=== PATIENT | female | born 1970 | race Caucasian/White ===

== ENCOUNTER → 2018-03-06 11:34 | Outpatient (CLI) | payer OTHER, SELFPAY ==
[2018-03-06 12:53] LABS: Add Manual Diff / Slide Review NO; Eosinophils Percent Auto 1.8 % (2-4); Hematocrit 38.4 % (36-46); Hemoglobin 13.2 g/dL (12.0-16.0); Lymphocytes Percent Auto 35.9 % (25-40); Mean Corpuscular HGB Conc 34.5 % (30-36); Mean Corpuscular Hemoglobin 31.4 PG (26-34); Mean Corpuscular Volume 90.9 fL (80-100); Monocytes Percent Auto 9.1 % (3-14); Neutrophils Absolute Auto 1700 /uL (3000-5900); Neutrophils Percent Auto 52.2 % (50-75); Platelet Count 156 X10^3/uL (150-400); Red Blood Cell Count 4.22 X10^6/uL (4.0-5.2); Red Cell Distribution Width 13.2 % (11.6-14.8); White Blood Cell Count 3.2 X10^3/uL (4.5-11.0)
[2018-03-06 13:08] LABS: INR 1.1 (0.9-1.3); Prothrombin Time 12.1 SECONDS (10.1-12.7)
[2018-03-06 13:11] LABS: PTT Partial Thromboplastin Tim 31 SECONDS (26.4-36.2)
[2018-03-06 13:15] LABS: Alanine Aminotransferase 24 IU/L (9-52); Albumin 4.3 g/dL (3.5-5.0); Albumin Globulin Ratio 1.4 (1.0-2.8); Alkaline Phosphatase 53 U/L (38-126); Aspartate Aminotransferase 23 IU/L (14-36); BUN Creatinine Ratio 14.4 (6-22); Bilirubin Total 1.3 mg/dL (0.2-1.3); Blood Urea Nitrogen 13 mg/dL (7-17); Calcium 9.6 mg/dL (8.4-10.2); Carbon Dioxide 31 mmol/L (22-32); Chloride 100 mmol/L (98-107); Estimated Glomerular Filt Rate > 60.0 mL/min (>60); Glucose 89 mg/dL (70-100); HEMOLYSIS < 15 (0-50); Potassium 4.3 mmol/L (3.4-5.1); Sodium 140 mmol/L (137-145); Total Protein 7.3 g/dL (6.3-8.2)
== END ==
PROVIDERS: PCP Internal Medicine; Visit Provider Internal Medicine
DX: N93.8 Other specified abnormal uterine and vaginal bleeding (principal)
CPT/HCPCS: 36415; 80053; 83001; 85025; 85610; 85730

== ENCOUNTER → 2019-12-24 08:43 | Outpatient (CLI) | payer OTHER, SELFPAY ==
[2019-12-24 09:50] LABS: Alanine Aminotransferase 15 IU/L (<35); Albumin Globulin Ratio 1.3 (1.0-2.8); Alkaline Phosphatase 51 U/L (38-126); Aspartate Aminotransferase 24 IU/L (14-36); BUN Creatinine Ratio 16.5 (6-22); Bilirubin Total 0.9 mg/dL (0.2-1.3); Blood Urea Nitrogen 15 mg/dL (7-17); Calcium 9.4 mg/dL (8.4-10.2); Carbon Dioxide 29 mmol/L (22-32); Chloride 103 mmol/L (98-107); Cholesterol 183 mg/dL (140-199); Estimated Glomerular Filt Rate > 60.0 mL/min (>60); Globulin 3.2 g/dL (1.7-4.1); Glucose 99 mg/dL (70-100); HDL Cholesterol 77 mg/dL (40-60); HEMOLYSIS < 15 (0-50); LDL Cholesterol Calculated 94 mg/dL (<100); Potassium 3.7 mmol/L (3.4-5.1); Sodium 138 mmol/L (137-145); Total Protein 7.2 g/dL (6.3-8.2); Triglycerides 61 mg/dL (35-150)
[2019-12-24 10:21] LABS: TSH w/ Reflex to FT4 2.04 uIU/mL (0.47-4.68)
== END ==
PROVIDERS: PCP Internal Medicine; Referring Provider Internal Medicine; Visit Provider Internal Medicine
DX: Z13.1 Encounter for screening for diabetes mellitus (principal); Z13.220 Encounter for screening for lipoid disorders; Z13.6 Encounter for screening for cardiovascular disorders
CPT/HCPCS: 36415; 80053; 80061; 84443

== ENCOUNTER → 2020-01-06 14:14 | Outpatient (CLI) | payer OTHER, SELFPAY ==
[2020-01-07 13:36] LABS: Fecal Immunochemical Test Negative (Negative)
== END ==
PROVIDERS: PCP Internal Medicine; Referring Provider Internal Medicine; Visit Provider Internal Medicine
DX: Z12.11 Encounter for screening for malignant neoplasm of colon (principal)
CPT/HCPCS: 82274

== ENCOUNTER → 2020-05-15 08:13 | Outpatient (CLI) | payer OTHER, SELFPAY ==
--- NOTE | 2020-05-15 | DI.MG.S_ITS ---
BILATERAL DIGITAL SCREENING MAMMOGRAM 3D/2D WITH CAD: 05/15/2020 CLINICAL: Baseline exam. Routine screening. No prior exams were available for comparison. The tissue of both breasts is heterogeneously dense. This may lower the sensitivity of mammography. Current study was also evaluated with a Computer Aided Detection (CAD) system. There is a 1.9 cm irregular equal density focal asymmetry in the left breast at 2 o'clock middle depth. There is possible architectural distortion associated with the focal asymmetry. There also is an oval lymph node in the left breast posterior depth superior region seen on the mediolateral oblique view only. This is asymmetrically prominent on the left. No other significant masses, calcifications, or other findings are seen in either breast. IMPRESSION: INCOMPLETE: NEEDS ADDITIONAL IMAGING EVALUATION The 1.9 cm irregular equal density focal asymmetry in the left breast at 2 o'clock middle depth is indeterminate. Additional views with possible ultrasound are recommended. The oval lymph node in the left breast posterior depth superior region seen on the mediolateral oblique view only is indeterminate. Additional views with possible ultrasound are recommended. This exam was interpreted at Station ID: [id number]. NOTE: For mammograms, a report in lay terms will be sent to the patient. Approximately 15% of breast malignancies will not be visualized mammographically. In the management of a palpable breast mass, a negative mammogram must not discourage biopsy of a clinically suspicious lesion. Electronically Signed By: Cornelius Marshall M.D. at/:05/15/2020 10:00:22 letter sent: Additional Imaging Needed ACR BI-RADS Category 0: Incomplete [id number]
== END ==
PROVIDERS: PCP Internal Medicine; Referring Provider Internal Medicine; Visit Provider Internal Medicine
DX: Z12.31 Encounter for screening mammogram for malignant neoplasm of breast (principal)
CPT/HCPCS: 77063; 77067

== ENCOUNTER → 2020-06-06 14:18 | Outpatient (CLI) | payer OTHER, SELFPAY ==
--- NOTE | 2020-06-06 15:01 | DI.US.S_ITS ---
Patient Name: YUKI MONCADA date: 1970 Sex: F Attending Physician: Antoinette Indications: Date: 06/06/2020 15:18 At the request of: NEREYDA POOLE Procedure: US breast LT limited LIMITED ULTRASOUND OF LEFT BREAST AND AXILLA: 06/06/2020 CLINICAL: Additional evaluation requested from prior study and palpable lump. Comparison is made to exams dated: 06/06/2020 mammogram and 05/15/2020 mammogram - [facility]. Ultrasound of the left breast 1-2 o'clock, and axilla regions was performed. There is a 2.9 cm x 3 cm x 1.8 cm irregular mass with a microlobulated and angular margin in the left breast at 1 o'clock anterior depth 3 cm from the nipple. This irregular mass is hypoechoic. This correlates with mammography findings. Color flow imaging demonstrates that there is vascularity present. There also is a left axillary lymph node with eccentric cortical thickening. This left axillary lymph node displays fatty hilum. This correlates with mammography findings. IMPRESSION: SUSPICIOUS OF MALIGNANCY The 2.9 cm x 3 cm x 1.8 cm irregular mass in the left breast at 1 o'clock anterior depth is at a high suspicion for malignancy. An ultrasound guided biopsy is recommended. The findings and recommendations were discussed with the patient in person by Dr. Ralph at the time of the exam. The left axillary lymph node with eccentric cortical thickening is at a low suspicion for malignancy. An ultrasound guided biopsy is recommended. This exam was interpreted at Station ID: [id number]. SUMMARY: Recommend ultrasound-guided biopsy of both the irregular mass in the left breast at 1 o'clock 3 cm from the nipple and the mildly enlarged lymph node in the left axilla. Electronically Signed By: Antony Grover M.D. Continued Report - Page 2 of 2 Patient Name: YUKI MONCADA date: 1970 Sex: F Attending Physician: Antoinette Indications: Date: 06/06/2020 15:18 At the request of: NEREYDA POOLE Procedure: US breast LT limited ar/penrad:06/06/2020 16:44:18 letter sent: Biopsy Required Ultrasound BI-RADS: 4c High suspicion of malignancy
--- NOTE | 2020-06-06 16:34 | DI.MG.S_ITS ---
Patient Name: YUKI MONCADA date: 1970 Sex: F Attending Physician: Antoinette Indications: Date: 06/06/2020 14:27 At the request of: NEREYDA POOLE Procedure: MM special view LT UNILATERAL LEFT DIGITAL DIAGNOSTIC MAMMOGRAM 3D/2D WITH ADDITIONAL VIEWS: 06/06/2020 CLINICAL: Additional evaluation requested from prior study. Comparison is made to exam dated: 05/15/2020 [facility]. The tissue of left breast is heterogeneously dense. This may lower the sensitivity of mammography. There is a 2.5 cm irregular equal density focal asymmetry with a spiculated margin in the left breast at 1 o'clock middle depth. This is seen in additional views. There is architectural distortion associated with the focal asymmetry. There also is an oval lymph node in the left breast posterior depth superior region seen on the mediolateral oblique view only. This is seen in additional views. No other significant masses or calcifications are seen in the breast. IMPRESSION: INCOMPLETE: NEEDS ADDITIONAL IMAGING EVALUATION The 2.5 cm irregular equal density focal asymmetry in the left breast at 1 o'clock middle depth is indeterminate. An ultrasound is recommended. The oval lymph node in the left breast posterior depth superior region seen on the mediolateral oblique view only is indeterminate. An ultrasound is recommended. This exam was interpreted at Station ID: [id number]. NOTE: For mammograms, a report in lay terms will be sent to the patient. Approximately 15% of breast malignancies will not be visualized mammographically. In the management of a palpable breast mass, a negative mammogram must not discourage biopsy of a clinically suspicious lesion. SUMMARY: Continued Report - Page 2 of 2 Patient Name: YUKI MONCADA date: 1970 Sex: F Attending Physician: Antoinette Indications: Date: 06/06/2020 14:27 At the request of: NEREYDA POOLE Procedure: MM special view LT Targeted ultrasound is recommended for further evaluation and will be scheduled immediately following this exam. Electronically Signed By: Antony morel/kathryn:06/06/2020 16:34:39 ACR BI-RADS Category 0: Incomplete [id number]
== END ==
PROVIDERS: PCP Internal Medicine; Referring Provider Internal Medicine; Visit Provider Internal Medicine
DX: R92.8 Other abnormal and inconclusive findings on diagnostic imaging of breast (principal); N63.21 Unspecified lump in the left breast, upper outer quadrant; R59.0 Localized enlarged lymph nodes
CPT/HCPCS: 76642; 77065; G0279

== ENCOUNTER → 2020-06-19 14:14 | Outpatient (CLI) | payer OTHER, SELFPAY ==
--- NOTE | 2020-06-19 | DI.US.S_ITS ---
ULTRASOUND GUIDED BIOPSY LEFT BREAST WITH MARKING DEVICE INSERTED: 06/19/2020 CLINICAL: Microcalcifications left breast. Left axillary node biopsy. PATIENT CONSENT: Risks (minor bleeding, infection, vasovagal reaction and repeat procedure), benefits and alternatives were explained to the patient and written informed consent was obtained. Correlation is made to exams dated: 06/06/2020 ultrasound, 06/06/2020 mammogram, and 05/15/2020 mammogram - [facility]. An ultrasound guided biopsy using real-time ultrasound was performed for the lymph node located in the left axillary tail. The skin was prepped in the usual manner. Local anesthetic was administered to the access site. A small incision was made in the breast. The abnormality was approached from the lateral aspect. A biopsy needle was placed adjacent to the abnormality under ultrasound guidance. Once the needle was documented to be in the correct location, three specimens were obtained using a BARD biopsy device. A clip was inserted into the biopsy cavity. The specimens were sent to the laboratory for pathological analysis. IMPRESSION: ULTRASOUND GUIDED BIOPSY MALIGNANT Ultrasound guided biopsy of the lymph node in the left axillary tail was successful. 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 Pathology results are concordant with imaging findings. A surgical consultation and a chemo oncology consultation are recommended. This exam was interpreted at Station ID: [id number]. Fabian michel,jr/:06/27/2020 08:06:16
--- NOTE | 2020-06-19 15:49 | DI.MG.S_ITS ---
Patient Name: YUKI MONCADA date: 1970 Sex: F Attending Physician: Antoinette Indications: Date: 06/19/2020 14:30 At the request of: NEREYDA POOLE Procedure: MM diagnostic mammo [id number] UNILATERAL LEFT DIGITAL DIAGNOSTIC MAMMOGRAM POST-EXCISIONAL BIOPSY: 06/19/2020 CLINICAL: Left breast mass. Comparison is made to exams dated: 06/06/2020 mammogram and 05/15/2020 mammogram - [facility]. The tissue of left breast is heterogeneously dense. This may lower the sensitivity of mammography. There is a marker clip in the appropriate position in the left breast at 1 o'clock . This marker clip placement is at the biopsy site. There also is a marker clip in the appropriate position in the left axillary tail. This marker clip placement is at the biopsy site. IMPRESSION: POST PROCEDURE MAMMOGRAM FOR MARKER PLACEMENT There was a successful marker clip placement in the left breast at 1 o'clock There was a successful marker clip placement in the left axillary tail. This exam was interpreted at Station ID: [id number]. NOTE: For mammograms, a report in lay terms will be sent to the patient. Approximately 15% of breast malignancies will not be visualized mammographically. In the management of a palpable breast mass, a negative mammogram must not discourage biopsy of a clinically suspicious lesion. Electronically Signed By: Fabian michel/:06/19/2020 16:52:50 Continued Report - Page 2 of 2 Patient Name: YUKI MONCADA date: 1970 Sex: F Attending Physician: Antoinette Indications: Date: 06/19/2020 14:30 At the request of: NEREYDA POOLE Procedure: MM diagnostic mammo [id number] ACR BI-RADS Category Post-procedure mammogram for marker placement
--- NOTE | 2020-06-19 16:00 | PATH_ITS ---
[facility] Accession Number: [id number] . 01 Material submitted: . breast - LT BREAST 100 MASS . 02 Diagnosis: Left Breast Mass, 1 o'clock, Biopsy: Invasive ductal carcinoma; see Cancer Case Summary. . CANCER CASE SUMMARY - Breast Procedure: Needle biopsy. Specimen Laterality: Left. Tumor Site: 1 o'clock. Tumor Size: 1.4 cm in greatest linear extent. Histologic Type: Invasive carcinoma of no special type (ductal). Histologic Grade Tubular Differentiation: Score 2. Nuclear Pleomorphism: Score 2. Mitotic Rate: Score 1. Overall Grade: Grade 1. Ductal Carcinoma In Situ: Present. Architectural Patterns: [place], cribriform. Nuclear Grade: Grade 2. Necrosis: Present, central. Lymphovascular Invasion: Present. Microcalcifications: Not identified. . CAP BREAST BIOMARKER* REPORTING TEMPLATE: . Estrogen Receptor (ER) Status: Positive, 90%. Average intensity of staining: Strong. Primary antibody: SP1 Progesterone Receptor (PgR) Status: Positive, 90%. Average intensity of staining: Strong. Primary antibody: 1E2 HER2 (by immunohistochemistry): Equivocal (2+). Primary antibody: 4B5 HER2 (by in situ hybridization): Pending; results will be issued in an addendum. . Cold Ischemia and Fixation Times: Meets requirements in the latest version of the ASCO/CAP guidelines. Testing performed on Block Number: A1. . *This test was developed and its performance characteristics determined by [employer]. It has not been cleared or approved by the U.S. Food and Drug Administration. The FDA has determined that such clearance or approval is not necessary. This test is used for clinical purposes. It should not be regarded as investigational or for research. [facility] 06/21/2020 1659 Local . 02 Comment: A concurrent left axillary lymph node biopsy ([id number]) is positive for metastatic carcinoma; please see that report for additional details. Fluorescence in situ hybridization for HER-2 will be performed, and results issued in an addendum. . As part of routine aerospace quality engineer, Dr. Muñoz has reviewed this case and agrees with the diagnosis of ductal carcinoma. The finding of ductal carcinoma was reported to Dr. Curry via RN, Aurora Mohr, by Dr. Rivera on 06/20/2020. . 02 Electronically signed: . Jewel Rivera MD, PhD, Pathologist NPI- [id number] . 01 Gross description: . Received one formalin-filled container, labeled with the patient's name and designated left breast 1 o'clock mass. The specimen is received with a plastic filter in container, sample loose in container and consists of multiple yellow-cohen, cylindrical-shaped portions of tissue with an average diameter of 0.2-0.3 cm and range in length from 0.6-1.5 cm. The specimen is entirely submitted in one cassette. Possible collection date and time per requisition: 06/19/20 at 16:15. Total fixation time: Approximately 11 hours. ([id number]) /[facility] 06/20/2020 0228 Local . 02 Pathologist provided ICD-10: C50.412 . 02 CPT . 166988, X75019, O70653 Performed at: 01 [facility] [address] [id number] MD Jevon Carmen MD Phone: [phone] Performed at: [address] [id number] MD Mary Muñoz MD Phone: [phone]
--- NOTE | 2020-06-19 16:00 | DI.US.S_ITS ---
ULTRASOUND GUIDED BIOPSY LEFT BREAST USING VACUUM DEVICE WITH MARKING DEVICE INSERTED: 06/19/2020 CLINICAL: Left breast mass. Left axillary node biopsy. PATIENT CONSENT: Risks (minor bleeding, infection, vasovagal reaction and repeat procedure), benefits and alternatives were explained to the patient and written informed consent was obtained. Correlation is made to exams dated: 06/06/2020 ultrasound, 06/06/2020 mammogram, and 05/15/2020 mammogram - . An ultrasound guided biopsy using real-time ultrasound was performed for the irregular shaped mass located in the left breast at 1 o'clock. The skin was prepped in the usual manner. The abnormality was approached from the lateral aspect. A biopsy needle was placed adjacent to the abnormality under ultrasound guidance. Once the needle was documented to be in the correct location, six specimens were obtained using the Mammotome biopsy system. A clip was inserted into the biopsy cavity. The specimens were sent to the laboratory for pathological analysis. A second ultrasound guided biopsy using real-time ultrasound was performed for the lymph node located in the left axillary tail. The skin was prepped in the usual manner. The abnormality was approached from the lateral aspect. A biopsy needle was placed adjacent to the abnormality under ultrasound guidance. Once the needle was documented to be in the correct location, three specimens were obtained using a BARD biopsy device. A clip was inserted into the biopsy cavity. The specimens were sent to the laboratory for pathological analysis. IMPRESSION: ULTRASOUND GUIDED BIOPSY MALIGNANT Ultrasound guided biopsy of the mass in the left breast at 1 o'clock was successful. Pathology results are positive for invasive ductal carcinoma in the left breast mass. The left axillary node was also positive for metastatic carcinoma. Surgical and oncologic referral are both recommended. This exam was interpreted at Station ID: [id number]. Fabian michel,jr/:06/27/2020 08:10:19
--- NOTE | 2020-06-19 16:10 | PATH_ITS ---
[facility] Accession Number: [id number] . 01 Material submitted: . lymph node - LT AXILLA LYMPH NODE . 02 Diagnosis: Left Axillary Lymph Node, Needle Core Biopsies: Fragments of lymph node positive for carcinoma, morphologically consistent with metastasis of concurrent breast primary. [facility] 06/21/2020 1644 Local . 02 Comment: A concurrent breast biopsy ([id number]) is positive for carcinoma; please see that report for more details. . As part of routine senior software quality analyst, Dr. Muñoz has reviewed this case and agrees with the diagnosis of metastatic carcinoma. . . . . . . . . 02 Electronically signed: . Jewel Rivera MD, PhD, Pathologist NPI- [id number] . 01 Gross description: . The specimen is received in formalin, labeled left axilla lymph node and consists of four monge cores of soft tissue, ranging from 0.2 to 0.4 cm in length x 0.1 cm in diameter. The specimen is entirely submitted in cassette A1. (EA:[id number]) /[facility] 06/20/2020 1529 Local . 02 Pathologist provided ICD-10: C77.3 . 02 CPT . 996470 Performed at: 01 [facility] [address], [place], [place] [id number] MD Jevon Carmen MD Phone: [phone] Performed at: 02 [facility] [address] [place], [place] [id number] MD Mary Muñoz MD Phone: [phone]
== END ==
PROVIDERS: PCP Internal Medicine; Referring Provider Internal Medicine; Visit Provider Internal Medicine
DX: C50.412 Malignant neoplasm of upper-outer quadrant of left female breast (principal); C77.3 Secondary and unspecified malignant neoplasm of axilla and upper limb lymph nodes; Z17.0 Estrogen receptor positive status [ER+]
CPT/HCPCS: 19083; 19084; 38505; 76942; 77065

== ENCOUNTER → 2020-07-06 12:01 | Outpatient (CLI) | payer OTHER, SELFPAY ==
--- NOTE | 2020-07-06 12:03 | DI.NM.S_ITS ---
PROCEDURE: NM BONE SCAN WHOLE BODY RADIOPHARMACEUTICAL: 22.0 no mCi Tc-99m MDP IV. INDICATIONS: Staging breast cancer, node positive, back and knee pain TECHNIQUE: Delayed whole-body scintigrams were obtained approximately 3-4 hours after intravenous injection of radiotracer. Anterior and posterior views were acquired from vertex to feet. Additional left and right oblique views of the ribs were obtained. COMPARISON: None. FINDINGS: Physiologic tracer activity in the kidneys and bladder. There is arthritic tracer activity seen in both feet. IMPRESSION: Punctate tracer activity seen in the distal right femur, which could be noise artifact although recommend anatomic imaging with radiographs to further assess. Elsewhere, no suspicious tracer activity identified to suggest metastatic disease. Dictated by: Fabian Jansen M.D. on 07/06/2020 at 17:10 Approved by: Fabian Jansen M.D. on 07/06/2020 at 17:14
[2020-07-06 12:17] LABS: Add Manual Diff / Slide Review NO; Basophils Absolute Auto 0 /uL (0-100); Basophils Percent Auto 0.5 % (0-2); Eosinophils Absolute Auto 0 /uL (0-450); Eosinophils Percent Auto 0.6 % (2-4); Hematocrit 37.7 % (36-46); Hemoglobin 12.7 g/dL (12.0-16.0); Lymphocytes Absolute Auto 1100 /uL (1100-4500); Lymphocytes Percent Auto 24.4 % (25-40); Mean Corpuscular HGB Conc 33.7 % (30-36); Mean Corpuscular Hemoglobin 31.3 PG (26-34); Mean Corpuscular Volume 92.9 fL (80-100); Monocytes Absolute Auto 300 /uL (0-900); Monocytes Percent Auto 6.7 % (3-14); Neutrophils Absolute Auto 3200 /uL (1500-7000); Neutrophils Percent Auto 67.8 % (50-75); Platelet Count 185 X10^3/uL (150-400); Red Blood Cell Count 4.06 X10^6/uL (4.0-5.2); Red Cell Distribution Width 12.9 % (11.6-14.8); White Blood Cell Count 4.7 X10^3/uL (4.5-11.0)
[2020-07-06 12:31] LABS: Alanine Aminotransferase 12 IU/L (<35); Albumin 4.1 g/dL (3.5-5.0); Albumin Globulin Ratio 1.4 (1.0-2.8); Alkaline Phosphatase 49 U/L (38-126); Aspartate Aminotransferase 23 IU/L (14-36); BUN Creatinine Ratio 16.5 (6-22); Bilirubin Total 0.8 mg/dL (0.2-1.3); Blood Urea Nitrogen 13 mg/dL (7-17); Calcium 9.5 mg/dL (8.4-10.2); Carbon Dioxide 29 mmol/L (22-32); Chloride 104 mmol/L (98-107); Estimated Glomerular Filt Rate > 60.0 mL/min (>60); Glucose 96 mg/dL (70-100); HEMOLYSIS < 15 (0-50); Potassium 3.8 mmol/L (3.4-5.1); Sodium 138 mmol/L (137-145); Total Protein 7.1 g/dL (6.3-8.2)
--- NOTE | 2020-07-06 12:58 | DI.CT.S_ITS ---
PROCEDURE: CT CHEST ABD PEL W CON INDICATIONS: pt with clinical Stage 3 breast cancer r/o mets TECHNIQUE: After the administration of oral and intravenous contrast, 5 mm thick sections acquired from the lung apices to the symphysis. 5 mm coronal and sagittal reformats were performed, with additional 7 mm coronal MIP reformats through the lungs. For radiation dose reduction, the following was used: automated exposure control, adjustment of mA and/or kV according to patient size. COMPARISON: [facility], , MM DIAGNOSTIC MAMMO UNILAT LT2D, 06/19/2020, 15:49. FINDINGS: Image quality: Excellent. CHEST: Lungs and pleura: No acute airspace opacities. No pleural effusions or pneumothorax. Central and peripheral airways appear patent and normal in caliber. Mediastinum: Heart size is normal. No pericardial effusion. No mediastinal or hilar adenopathy by size criteria. Thoracic aorta and central pulmonary arteries are normal in size. Esophagus is normal in caliber. No hiatal hernia. Chest wall: Mass in the left breast which corresponds to patient's known carcinoma. Biopsy clip marker noted in the left breast mass. No axillary or supraclavicular adenopathy by size criteria. Thyroid gland is normal. ABDOMEN: Solid organs: Liver is normal in size and enhancement. Gallbladder is normal. Biliary system is non dilated. Pancreas enhances normally. Spleen is normal in size and enhancement. No adrenal nodules. Kidneys demonstrate normal size and enhancement, without hydronephrosis. Peritoneum and bowel: Bowel loops demonstrate normal wall thickness and caliber. No free fluid or air. The appendix is normal. Nodes and vessels: No retroperitoneal or mesenteric adenopathy by size criteria. Aorta and inferior vena cava are normal in size. Miscellaneous: No ventral hernias. PELVIS: Genitourinary: Bladder wall thickness is normal. 3.2 centimeter left adnexal cyst. Miscellaneous: No inguinal hernias or adenopathy. Bones: No suspicious bony lesions. No vertebral body compression fractures. Spine degenerative disc disease and facet arthropathy. IMPRESSION: 1. No evidence of metastatic disease involving the chest abdomen pelvis. 2. Left breast mass compatible with known breast carcinoma. 3. 3.2 centimeter left adnexal cyst. Dictated by: Sweetie Cevallos MD, PhD on 07/06/2020 at 13:37 Approved by: Sweetie Cevallos MD, PhD on 07/06/2020 at 13:47
== END ==
PROVIDERS: PCP Internal Medicine; Referring Provider Internal Medicine; Visit Provider Internal Medicine
DX: C50.412 Malignant neoplasm of upper-outer quadrant of left female breast (principal); C77.3 Secondary and unspecified malignant neoplasm of axilla and upper limb lymph nodes; N94.89 Other specified conditions associated with female genital organs and menstrual cycle; M54.9 Dorsalgia, unspecified; M25.562 Pain in left knee; M25.561 Pain in right knee; Z17.0 Estrogen receptor positive status [ER+]
CPT/HCPCS: 36415; 71260; 74177; 78306; 80053; 85025; A9503; Q9967

== ENCOUNTER → 2020-07-14 10:08 | Outpatient (CLI) | payer OTHER, SELFPAY ==
--- NOTE | 2020-07-14 10:10 | DI.US.S_ITS ---
ULTRASOUND OF LEFT BREAST: 07/14/2020 CLINICAL: Left beast periareolar skin lesion x 2 yrs. Recent lt breast DCIS diagnosis with ax node mets. Comparison is made to exams dated: 06/19/2020 ultrasound biopsy, 06/19/2020 mammogram, 06/19/2020 ultrasound biopsy, 06/06/2020 ultrasound, 06/06/2020 mammogram, and 05/15/2020 mammogram - [facility]. Comparison was also made to CT chest/abdomen/pelvis dated 07/06/2020. Color flow and real-time ultrasound of the left breast were performed. Cash scale images of the real-time examination were reviewed. There is a 1 cm x 0.9 cm x 0.6 cm wider than tall oval mass with a circumscribed margin in the left breast at 12 o'clock anterior depth 3 cm from the nipple. This oval mass is hypoechoic with posterior acoustic enhancement. Color flow imaging demonstrates that there is an adjacent vascularity. This mass correlates with CT findings and appears to intradermal versus subdermal in location. It does appear to extend or communicate with adjacent irregular, hypoechoic mass at the 11 o'clock position which is a biopsy proven malignancy. IMPRESSION: KNOWN BIOPSY PROVEN MALIGNANCY The 1 cm x 0.9 cm x 0.6 cm wider than tall oval mass at the 12 o'clock position in the left breast likely represents a sebaceous cyst and is probably benign (BIRADS 3). Biopsy proven mass at 11 o'clock redemonstrated (BIRADS 6). A follow-up left ultrasound in 6 months is recommended to demonstrate stability of the probably benign 12 o'clock mass. Findings and recommendations were conveyed to the patient during today's evaluation. This exam was interpreted at Station ID: [id number]. Electronically Signed By: Cornelius Marshall M.D. aty/:07/18/2020 09:59:43 Ultrasound BI-RADS: 6 Known biopsy proven malignancy
--- NOTE | 2020-07-14 10:10 | DI.RAD.S_ITS ---
PROCEDURE: XR FEMUR RT MIN 2V INDICATIONS: Breast cancer positive bone scan rule out Mets TECHNIQUE: 2 views of the femur were acquired. COMPARISON: [place], [place], [place] BONE SCAN WHOLE BODY, 07/06/2020, 16:18. FINDINGS: Bones: No acute fracture or dislocation. No discrete lesion is visualized within the distal 3rd of the right femoral diaphysis to correspond with the punctate region of increased radiotracer uptake on the associated nuclear medicine bone scan dated July 06, 2020. Soft tissues: No suspicious soft tissue calcifications or masses. IMPRESSION: 1. No discrete bone lesion to correspond with the questionable focus of increased radiotracer uptake within the right femoral diaphysis. If further characterization is warranted, MRI of this region with and without contrast could be used. Dictated by: Estee Colindres M.D. on 07/14/2020 at 10:41 Approved by: Estee Colindres M.D. on 07/14/2020 at 10:58
== END ==
PROVIDERS: PCP Internal Medicine; Referring Provider Internal Medicine; Visit Provider Internal Medicine
DX: C50.412 Malignant neoplasm of upper-outer quadrant of left female breast; C77.3 Secondary and unspecified malignant neoplasm of axilla and upper limb lymph nodes; N63.25 Unspecified lump in the left breast, overlapping quadrants
CPT/HCPCS: 73552; 76642

== ENCOUNTER → 2020-07-19 09:10 | Outpatient (CLI) | payer OTHER, SELFPAY ==
--- NOTE | 2020-07-19 09:11 | DI.MRI.S_ITS ---
BREAST MRI OF BOTH BREASTS: 07/19/2020 CLINICAL: Breast Cancer. Comparison is made to exams dated: 07/14/2020 ultrasound, 06/19/2020 ultrasound biopsy, 06/19/2020 mammogram, 06/19/2020 ultrasound biopsy, 06/06/2020 mammogram, and 06/06/2020 [facility]. TECHNIQUE: The patient was placed prone in a dedicated breast imaging coil. Precontrast axial STIR and 3D FLASH without fat saturation sequences were obtained. Both before and after bolus injection of contrast, sequential 1-minute axial 3D FLASH with fat saturation sequences for 3 time points, with subtraction images and maximum intensity projections (MIP's) generated. Delayed sagittal FLASH images with fat saturation were also obtained. Computer-aided detection, including computer algorithm analysis of MRI image data for lesion detection and characterization, pharmacokinetic analysis, with further physician review for interpretation, was performed. FINDINGS: Image quality: Excellent. There is mild nodular background parenchymal enhancement. Right breast: Numerous nonenhancing cysts are seen throughout the right breast, some of which are hyperintense on precontrast T1 weighted images. No suspicious enhancing mass or area of non mass enhancement is seen in the right breast. Left breast: An irregular enhancing mass with irregular margins measuring up to 2.9 x 2.6 x 3.8 cm (AP by TR by CC) in the left breast at the 1 o'clock position with associated biopsy clip corresponds to the biopsy-proven intraductal carcinoma. The enhancing area measures slightly larger when compared to the prior ultrasound from 06/06/2020. This mass demonstrates predominantly rapid enhancement and plateau on kinetic curve assessment. A 1.0 x 0.8 x 0.9 cm nonenhancing cystic lesion is seen adjacent to the skin surface in the left breast at the 12 o'clock position corresponds to the probable sebaceous cyst seen on the ultrasound from 07/14/2020. Numerous additional nonenhancing cysts are seen throughout the left breast, some of which demonstrate intrinsic T1 hyperintense signal. Miscellaneous: The previously biopsied lymph node in the left axilla measures 7 mm in short axis diameter, compatible with known lydia metastatic disease. A few smaller left axillary lymph nodes measure up to 4 mm in size, and are nonspecific. No significant enlarged right-sided axillary lymph nodes are seen. The included portions of the anterior chest and anterior upper abdomen demonstrate no acute abnormality. No abnormal enhancing osseous lesion is seen. IMPRESSION: KNOWN BIOPSY PROVEN MALIGNANCY 1. Biopsy-proven intraductal carcinoma in the left breast at the 1 o'clock position measures 2.9 x 2.6 x 3.8 cm on the current exam. 2. A left axillary lymph node measuring 7 mm in diameter is compatible with the biopsy-proven lydia metastatic disease. Additional small nonspecific left axillary lymph nodes are seen measuring up to 4 mm in short axis diameter. 3. A 1.0 x 0.8 x 0.9 cm nonenhancing cystic lesion is seen adjacent to the skin surface in the left breast at the 12 o'clock position, which corresponds to the probable sebaceous cyst seen on the ultrasound from 07/14/2020. 4. No suspicious enhancing mass or abnormal non mass enhancement is identified in the right breast. Numerous benign-appearing cysts are seen throughout both breasts, some of have proteinaceous or hemorrhagic contents. 5. No significantly enlarged right axillary lymphadenopathy is seen. BIRADS 6, known biopsy-proven malignancy. COMMENT: The imaging literature indicates that a negative contrast breast MRI examination has a high sensitivity and a moderate specificity for detecting and excluding invasive carcinomas to a detection threshold of 3-5 mm; nonetheless, appropriate clinical and mammographic follow-up are recommended. MRI is not sensitive for detecting DCIS (ductal carcinoma in situ) and may not detect large invasive neoplasms that show only minimal enhancement such as mucinous carcinoma. If there are suspicious calcifications or clinically worrisome palpable masses, then biopsy should still be considered. Invasive neoplasms can be hidden by co-existent and benign enhancement caused by mastitis, hormone therapy effects, radiation therapy, , and recent biopsy or surgery. False positive examinations can occur in a number of circumstances, including breasts that have recently been subject to invasive procedures and those that contain atypical ductal hyperplasia, hormonally stimulated glandular tissue, fat necrosis, or radial scars. Future imaging is recommended as follows: 01/12/2021 follow-up left ultrasound. This exam was interpreted at Station ID: [id number]. Electronically Signed By: Antony Grover M.D. ar/:07/21/2020 09:21:08 ACR BI-RADS Category 6: Known biopsy proven malignancy [id number]
== END ==
PROVIDERS: PCP Internal Medicine; Referring Provider Internal Medicine; Visit Provider Internal Medicine
DX: C50.412 Malignant neoplasm of upper-outer quadrant of left female breast; C77.3 Secondary and unspecified malignant neoplasm of axilla and upper limb lymph nodes; N60.01 Solitary cyst of right breast; N60.02 Solitary cyst of left breast
CPT/HCPCS: 77049

== ENCOUNTER → 2020-08-25 09:19 | Outpatient (CLI) | payer OTHER, SELFPAY ==
[2020-08-25 10:32] LABS: COVID19 -Nasal RAPID Negative (Negative)
== END ==
PROVIDERS: PCP Internal Medicine; Visit Provider Specialist
DX: Z01.812 Encounter for preprocedural laboratory examination (principal); Z11.59 Encounter for screening for other viral diseases
CPT/HCPCS: 87635; C9803

== ENCOUNTER 2020-08-28 07:31 | Day surgery (SDC) | payer OTHER, SELFPAY ==
[2020-08-25 10:56] VITALS: BMI 21.3
[2020-08-28] VITALS (22 sets, daily range): BP systolic 104–130; BP diastolic 49–75; PULSE 85–101; RESP 9–18; TEMP 36.6–37.6; O2SAT 94–100; BMI 21.3
--- NOTE | 2020-08-28 | DI.US.S_ITS ---
ULTRASOUND GUIDED WIRE LOCALIZATION LEFT BREAST WITH POST MAMMOGRAPHIC AND ULTRASOUND IMAGIN08/28/2020 CLINICAL: Left axillary node wire localization placement. Correlation is made to exams dated: 07/19/2020 breast MRI, 07/14/2020 ultrasound, 06/19/2020 ultrasound biopsy, 06/19/2020 mammogram, 06/19/2020 ultrasound biopsy, and 06/06/2020 [facility]. A wire localization using ultrasound guidance was performed for the concerning circumscribed oval lymph node located in the left axillary tail. This was described on the previous ultrasound report. The skin was prepped in the usual manner. Local anesthetic was administered to the access site. The localization was approached from the caudocranial aspect. A J-hook wire was inserted into the targeted area under ultrasound guidance. A sterile dressing was applied to the access site. Post placement mammographic and ultrasound imaging demonstrates the tip traverses the targeted area. IMPRESSION: WIRE LOCALIZATION Wire localization for the lymph node in the left axillary tail was successful. US at end of localization shows the wire traversing the node of concern, as does the post-wire loc mammogram. A specimen radiograph is aniticipated later today. This exam was interpreted at Station ID: [id number]. Felton Ralph M.D. [facility]/:08/28/2020 11:30:42
--- NOTE | 2020-08-28 | PATH_ITS ---
[facility] Accession Number: [id number] . 01 Material submitted: . PART A: lymph node - LEFT AXILLARY LYMPH NODES PART B: breast - LEFT MASTECTOMY . 01 Clinical history: . B: LEFT MASTECTOMY, STITCH GONZALEZ TAIL OF DARION . 02 Diagnosis: A. Left Axillary Nodes: Five of nine lymph nodes positive for metastatic carcinoma (5/9), includes three tumor nodules in the axillary fat (6 mm, 7 mm, and 8 mm), classified as three positive lymph nodes per CAP protocol. Largest metastatic focus: 8 mm in greatest dimension. Extranodal extension circumferentially present in several positive lymph nodes (at least 8 mm in length). Biopsy marker present in the largest positive lymph node at gross examination. . B. Left Mastectomy: Invasive carcinoma of the breast with the following features: . CANCER CARE SUMMARY - Breast . Procedure: Modified radical mastectomy. Specimen Laterality: Left. . Tumor site: Upper outer quadrant. Tumor size: 3.5 x 3.3 x 2.2 cm. Histologic type: Invasive carcinoma of no special type (ductal). Histologic grade: [place] histologic score Glandular/Tubular differentiation: Score 3 Nuclear Pleomorphism: Score 3 Mitotic Rate: Score 1 Overall Grade: Grade 2 Tumor focality: Single focus of invasive carcinoma. Ductal carcinoma in situ: Present Size (Extent) of DCIS: Present throughout the tumor and focally at tumor periphery (approximately 40% of the apparent tumor). Architectural patterns: Solid, comedo, and cribriform patterns. Nuclear grade of DCIS: Grade 3 (high) Necrosis: Present, central. . Tumor Extension: Skin is present and uninvolved. DCIS does not involve the nipple epidermis. No skeletal muscle is identified. . Margins Invasive Carcinoma Distance from closest margin: Posterior 6 mm Posterior: 6 mm. Anterior: Greater than 10 mm. Superior: Greater than 10 mm. Inferior: Greater than 10 mm. Medial: Greater than 10 mm. Lateral: Greater than 10 mm. . Margins Ductal Darcinoma In Situ Distance from closest margin: Posterior 5 mm Posterior 5 mm. Anterior: 9 mm. Superior: 8 mm. Inferior: Greater than 10 mm. Medial: Greater than 10 mm. Lateral: Greater than 10 mm. . Regional Lymph Nodes Total number of lymph nodes examined: 9 Number of sentinel lymph nodes examined: 0 Lymph Node Involvement: Number of lymph nodes with macrometastases: 5 Number of lymph nodes with micrometastases: 0 Number of lymph nodes with isolated tumor cells: 0 Size of largest metastatic deposit: 8 mm Extranodal Extension: Present . Treatment effect: No known presurgical therapy. Treatment effected lymph nodes: Not identified . Lymph-vascular invasion: Present. Dermal lymph-vascular invasion: Not identified. Pathologic staging: AJCC, 8th ed.: pT2 N2a . Additional pathologic findings: Fibrocystic changes are present. A biopsy marker is identified in one axillary node and within slice 12 of the mastectomy specimen. . Ancillary studies: Biomarkers Performed Previously on Case: [facility] Case #[id number] Estrogen Receptor (ER) Status: Positive, 90%, strong. Progesterone Receptor (PgR) Status: Positive, 90%, strong. HER2 (by immunohistochemistry): Equivocal by HER2 immunohistochemistry; HER2 (ERBB2) (by in situ hybridization): Negative/not amplified ([employer] [id number]). . Microcalcifications: Not identified. MRV 09/04/2020 1454 Local . 02 Electronically signed: . Maryuri Wilson MD, Pathologist NPI- [id number] . 01 Gross description: . A. Received in formalin, labeled left axillary nodes, and consists of multiple monge-yellow fragments of adipose tissue measuring 7.0 x 6.0 x 2.2 cm in aggregate. Sectioning reveals multiple candidate lymph nodes ranging from 0.3 to 1.8 cm. One lymph node has an embedded silver metallic biopsy marker. The lymph nodes are entirely submitted. . A1 - bisected lymph node with biopsy marker. A2 - one trisected lymph node. A3-A4 - intact lymph nodes. . Formalin fixation time: Approximately 20 hours. (EA:[id number]) . B. The specimen is received in formalin, labeled left mastectomy and consists of a left simple mastectomy specimen. . Weight: 217 grams. Measurement: 4.8 cm from anterior to posterior, 13.5 cm from medial to lateral, and 17.0 cm from superior to inferior. Skin Ellipse: Present, measuring 8.5 x 4.0 cm. The everted nipple measures 2.2 x 2.0 x 1.4 cm, and the areolar complex measures 3.0 x 3.0 cm. Axillary Tail: Separate. The specimen is oriented with a suture at the tail of Kiser. Margins: The anterior-superior margin is inked blue, the anterior- inferior margin is inked green, and the posterior margin is inked black. Slices: Serially sectioned from medial to lateral into 17 slices. Lesion: Description: Firm, monge-pink, well-circumscribed with a silver metallic biopsy marker in slice 12. Slices Involved: 9-14 within the mid/upper mid outer quadrant. Distance to Margins: 0.5 cm from the posterior margin, 1.4 cm from the anterior-superior margin, and 2.1 cm from the anterior-inferior margin. Additionally, the mass is located 0.6 cm from the nipple. Size: 3.5 x 3.3 x 2.2 cm. Other: The uninvolved parenchyma consists of approximately 50% monge-white fibrocystic tissue and 50% monge-yellow lobulated adipose tissue. . [employer] sections are submitted. B1-B2 - [employer] upper inner quadrant, slices 4 and 6, to include anterior-superior and posterior margins. B3-B4 - [employer] lower inner quadrants, slices 3 and 6, to include anterior-inferior and posterior margins. B5-B7 - Nipple, perpendicularly sectioned and entirely submitted. B8 - Slice 9, medial to mass, to include posterior margin. B9 - Slice 9, mass in relation to anterior-superior and posterior margins. B10-B11 - Slice 10, mass in relation to posterior margin. B12 - Slice 11, mass in relation to posterior margin. B13-B14 - Mass in relation to posterior margin, to include site of biopsy marker. B15 - Slice 12, closest anterior-inferior margin (lower outer quadrant). B16 - Slice 13, mass in relation to posterior margin. B17 - Slice 14, lateral to mass, to include posterior margin. B18 - Slice 16, lateral to mass, to include posterior margin. . 45 hours. (EA:[id number]) /MRV 08/30/2020 1734 Local . 02 Microscopic: . Immunohistochemistry stain for e-cadherin was performed on block B1 to evaluate for cells of interest and is positive in region of interest. The control stain showed appropriate reactivity. . Block B1: The presence of e-cadherin immunostaining in the region of interest mitigates against the presence of atypical lobular hyperplasia / lobular [id number] at this small focus. . * This test was developed and its performance characteristics determined by [employer] It has not been cleared or approved by the U.S. Food and Drug Administration. The FDA has determined that such clearance or approval is not necessary. This test is used for clinical purposes. It should not be regarded as investigational or for research. . 02 Pathologist provided ICD-10: C50.011 . 02 CPT . 469570, 303471, L38971 Performed at: 01 [facility] [address] [address], [place], [place] [id number] MD Jevon Carmen MD Phone: [phone] Performed at: 02 [facility] [address] [place], [place] [id number] MD aMry Muñoz MD Phone: [phone]
--- NOTE | 2020-08-28 | DI.MG.S_ITS ---
UNILATERAL LEFT DIGITAL DIAGNOSTIC MAMMOGRAM: 08/28/2020 CLINICAL: Enlarged node left axilla. Comparison is made to exams dated: 08/28/2020 localization, 07/19/2020 breast MRI, and 06/19/2020 mammogram - [facility]. The tissue of left breast is heterogeneously dense. This may lower the sensitivity of mammography. There is a marker clip in the appropriate position in the left axillary tail. This is demonstrated by prior ultrasound. This correlates with current ultrasound findings. There is now a localization wire associated extending through the lymph node with wire tip just past the upper edge of the node. IMPRESSION: POST PROCEDURE MAMMOGRAM FOR MARKER PLACEMENT There was a successful localization wire placement throughg the left axillary tail node which has been previously biopsied as positive for early metastatic disease. Subsequent surgical specimen radiograph is anticipated. This exam was interpreted at Station ID: [id number]. NOTE: For mammograms, a report in lay terms will be sent to the patient. Approximately 15% of breast malignancies will not be visualized mammographically. In the management of a palpable breast mass, a negative mammogram must not discourage biopsy of a clinically suspicious lesion. Electronically Signed By: Felton Ralph M.D. sdh/:08/28/2020 11:36:38 ACR BI-RADS Category Post-procedure mammogram for marker placement
[2020-08-28] MEDS: LACTATED RINGERS 1,000 ML 100 ML IV ×2 (08:15→13:20)
--- NOTE | 2020-08-28 12:00 | PM.HP.1 ---
History of Present Illness History of Present Illness Date Patient Seen: 08/28/20 Time Patient Seen: 12:00 Chief complaint: MASTECTOMY LYMPH NODE REMOVAL *OPB* Narrative: The patient is a woman with a left-sided breast cancer and a positive lymph node here for mastectomy and axillary dissection. She was offered lumpectomy with radiation and axillary dissection but opted instead for mastectomy. Whether she was sees radiation or not will depend on operative and pathologic findings. She has undergone a localization of the positive node to ensure it is removed. Patient History Medical History Anxiety state, unspecified Depression Surgical History Status post delivery (08/19/96) Status post delivery (10/25/98) Status post delivery (12/25/00) Status post tubal ligation (12/25/00) Family & Social History Family History Brother Age: 57 Hypertension High cholesterol Father Age: 84 Heart disease Hypertension High cholesterol Social History: household members spouse,children Tobacco & Substance use: Smoking Status Former smoker alcohol intake current Substance Use Type does not use Meds Home Medications and Allergies Home Medications Medication Instructions Recorded Confirmed Type bupropion HCl 150 mg tablet,12 hr 150 mg PO BID #180 tab 12/17/19 08/28/20 Rx sustained-release Bifidobacterium infantis 4 mg 4 mg PO DAILY 07/04/20 08/28/20 History capsule vitamin C 500 mg-multivitamin with 1 tab PO DAILY 07/04/20 08/28/20 History minerals chewable tablet Allergies Allergy/AdvReac Type Severity Reaction Status Date / Time No Known Drug Allergies Allergy Verified 08/28/20 07:47 Review of Systems Review of Systems ROS: Yes All systems reviewed with the patient and are negative except as otherwise documented Exam Vital Signs (past 8 hours): - 08/28/20 08:00 Temperature 98.2 F Pulse Rate 85 Respiratory Rate 16 Blood Pressure 117/70 Pulse Oximetry 98 Oxygen Delivery Method Room Air Narrative Exam Narrative: Cooperative no apparent distress. Eyes are nonicteric. No nodes in the neck supraclavicular right axilla. Needle in the left. Mass noted near the nipple-areolar complex just superior and lateral edge. There is a sebaceous cyst immediately over it. Lungs are clear to auscultation. No rales or rhonchi. Heart regular rate and rhythm without murmur gallop. No rashes on the skin. Patient is alert and oriented. Assessment & Plan Assessment & Plan narrative: Patient is a woman with a rather large mass and a small breast and positive node in left axilla. Because of the expected deformity and the potential to obviate the need for radiation she has opted to undergo mastectomy with axillary dissection. I have discussed the operation with her including risks of bleeding infection flap loss seroma, injury to the intercostal brachial nerve. She was told to expect that there would be [address] postoperatively[address] All questions were answered and she wished to proceed.
--- NOTE | 2020-08-28 12:06 | PM.PREOP ---
Pre-operative Note COVID-19 COVID-19 status: Negative Result date/Date tested (Pos, Neg/Pending): 08/25/20 Interval Note History & Physical reviewed/Exam performed by Physician: Yes Changes to H&P: No
--- NOTE | 2020-08-28 12:11 | SUR.OPER ---
Supine on padded OR bed, head on pillow, arms secured on padded arm boards at <90 degrees abduction, legs uncrossed, safety belt at thigh, tape over blanket over lower legs.
[2020-08-28] MEDS: CEFAZOLIN 2 GM/100 ML FROZ.PIGGY IV (12:26)
[2020-08-28] MEDS: fentaNYL 100 MCG/2 ML INJ IV ×2 (16:21→16:33)
[2020-08-28] MEDS: HYDROMORPHONE 2 MG INJ IV ×2 (16:22→16:34)
--- NOTE | 2020-08-28 16:31 | P.OP_ITS ---
Operative Date/Time/Diagnoses Date of procedure: 08/28/20 Time of procedure: 16:10 Pre-op diagnosis: Left-sided breast cancer with metastatic disease to the axilla Post-op diagnosis: same Procedure & Clinicians Procedure: Left modified radical mastectomy Same procedure as scheduled: Yes Indications: Treatment of locally advanced breast cancer. Tumor 4 x 4 cm. Surgeon: Renny Benton Click Yes if Unassisted: Yes Anesthesia Type: General Operative Notes Findings: Mastectomy separately sent from axillary contents due to anatomy Closure Type: primary Specimen(s): other (Left Breast and axillary contents (nodes)) Prosthetic devices, grafts, tissues, transplants, or devices: None Applied: drain(s) (Two hundred nineteen [place] Rajesh drains. One under the flaps(medial drain) and 1 in the axilla (lateral drain)) Estimated Blood Loss (mL): 100 Blood products transfused: none Procedure in detail: Patient was placed supine on the operating room table and underwent general LMA anesthesia. She was prepped and draped in the usual fashion. She had had a wire placed in her left axilla to allie the node that had been biopsied and marked which was known to be positive. Elliptical incision was made around the nipple-areolar complex. The mass was central and her breasts were rather small and so I made my ellipse to encompass the mass as well as a small sebaceous cyst in the skin. Flap was raised superiorly to the level of the clavicle and medially to the midline. The fascia was incised beneath the clavicle and the breast began to be flipped inferiorly so that I could enter into the axilla. The axilla was entered and dissection was begun here. I identified the axillary vein. There were multiple branches of what at least in part were intercostal brachial branches which I preserved. This made the dissection of the fatty contents of the axilla of bit difficult. First they were quite attenuated as she is very thin and came apart in pieces rather than as a unified whole. The wire had been identified on imaging preoperatively in it appeared that it went through and beyond the lymph node. However during the dissection it was not clear which node was involved as the wire itself was lodged adjacent to the ribs in an area where there was no palpable adenopathy. So I removed all palpable and lydia tissue and fat from the axilla. I was careful to avoid any injury to neurologic structures to the serratus and the latissimus. The inferior flap was then developed down to the inferior mammary fold. The fascia was left intact inferior and medial but the fascia over most of the pack from the clavicle to well below the tumor was taken with specimen. The breast was taken off superior to inferior medial lateral and ultimately detached and submitted. The flaps were quite thin both superiorly and inferiorly. Meticulous hemostasis was achieved in all areas. Drains were placed under the flaps and in the axilla. The lateral-most drain goes into the axilla and the other medial on goes under the flaps. There was secured with 3-0 nylon suture. The subcu was closed with interrupted 3 0 Vicryl. The skin was closed a running 4-0 Vicryl subcuticular stitch and Steri-Strips. Dressing and Kemal wrap was applied. Patient tolerated the procedure well. There were no apparent complications. Complications: none Post-operative Condition: stable Disposition: PACU Plan for aftercare: Observation
[2020-08-28] MEDS: LACTATED RINGERS 1,000 ML 42 ML IV (17:43)
--- NOTE | 2020-08-28 18:58 | PC.NURSE ---
ADMISSION: Report received from PACU, care assumed 1720. Post-left mastectomy. Chest wrapped in PROSPER bandage, CDI, chayito drain x2. A&Ox3. Rates pain 3/10, tolerable. Ambulatory with standby assist, voiding. Tolerating clear liquid diet. Oriented to room, POC. Call light within reach. Instructed to call if needs to get OOB.
[2020-08-28] MEDS: OXYCODONE IR 5 MG TABLET 10 MG PO (20:03)
[2020-08-28] MEDS: GABAPENTIN 300 MG CAPSULE PO (20:03)
[2020-08-29 04:54] VITALS: BP 107/50; PULSE 84; RESP 18; TEMP 36.5; O2SAT 100
[2020-08-29] MEDS: OXYCODONE IR 5 MG TABLET 10 MG PO ×2 (05:17→11:12)
[2020-08-29 08:03] VITALS: BP 111/61; PULSE 80; RESP 13; TEMP 37.1; O2SAT 100
[2020-08-29] MEDS: GABAPENTIN 300 MG CAPSULE PO (08:41)
--- NOTE | 2020-08-29 10:44 | PM.DS.1 ---
History of Present Illness History of Present Illness Chief complaint: MASTECTOMY LYMPH NODE REMOVAL *OPB* Narrative: The patient is a woman with a left-sided breast cancer and a positive lymph node here for mastectomy and axillary dissection. She was offered lumpectomy with radiation and axillary dissection but opted instead for mastectomy. Whether she was sees radiation or not will depend on operative and pathologic findings. She has undergone a localization of the positive node to ensure it is removed. Discharge Providers Provider Discharge Date: 08/29/20 Primary care physician: Miguelangel Curry MD Consults: 08/28/20 17:36 Consult to Discharge Planning Routine Comment: Discharge provider: Renny Benton MD Summary Hospital Course Discharge Diagnosis: Left breast cancer with metastatic disease to the left axillary node Hospital Course: Patient underwent a modified radical mastectomy. Drains were placed. She was given instructions and demonstrated the ability to care for her drains. She was shown how to do exercises to prevent her shoulder from freezing. She expressed understanding. She is discharged to follow up in the office. Status at Discharge Cognitive/behavioral status at discharge: oriented Functional status at discharge: independent ambulation Overall status at discharge: patient is progressing back to baseline Exam Vital Signs (past 8 hours): - 08/29/20 04:54 08/29/20 08:03 Temperature 97.7 F 98.8 F Pulse Rate 84 80 Respiratory Rate 18 13 Blood Pressure 107/50 L 111/61 Pulse Oximetry 100 100 Oxygen Delivery Method Room Air Oxygen Flow Rate 0 Narrative Exam Narrative: Chest wall is flat. Drainage is serosanguineous as expected. Dressing is intact. [facility] Medical History Anxiety state, unspecified Depression Surgical History Status post delivery (08/19/96) Status post delivery (10/25/98) Status post delivery (12/25/00) Status post tubal ligation (12/25/00) Family History Brother Age: 57 Hypertension High cholesterol Father Age: 84 Heart disease Hypertension High cholesterol Social History marital status: household members: spouse and children occupational status: employed Smoking Status: Former smoker alcohol intake: current Discharge Assessment & Plan Assessment and Plan Assessment: Thus far normal postoperative recovery. Discharge Plan Discharge Plan Patient Disposition: Home Provider Discharge Comment: Your operation went fine. You have 2 drains in. Empty them several times a day and record the amount in each drain separately. Bring that record with you to the office. In addition to the pain medicine I prescribed you may take Tylenol. Try to avoid things like Naprosyn, Advil or ibuprofen. If you become constipated you may use a laxative like milk of magnesia. Make sure you exercise your shoulder as I demonstrated to you 3 or 4 times a day at least. Discharge orders & Medications Discharge Orders: Discharge (Order); Ordered 08/29/20 Ordered By: Renny Benton Prescriptions: New gabapentin 300 mg capsule 300 mg PO BEDTIME Qty: 20 RF: 0 oxycodone 5 mg tablet See Rx Instructions .ROUTE .COMPLEX PRN (Reason: painful procedure) Qty: 20 RF: 0 Continued bupropion HCl [Wellbutrin SR] 150 mg tablet sustained-release 12 hr 150 mg PO BID Qty: 180 RF: 3 Align 4 mg capsule 4 mg PO DAILY RF: 0 Emergen-C 500 mg tablet,chewable 1 tab PO DAILY RF: 0 No Action ondansetron HCl 8 mg Tablet 8 mg PO BID PRN (Reason: Nausea) Qty: 30 RF: 2 olanzapine 10 mg Tablet 5 mg PO BID 4 Days Qty: 30 RF: 0 Follow up/Referrals: Miguelangel Curry MD [Primary Care Provider] - Renny Benton MD [Physician] - 09/04/20 4:00 pm (If you need to reach a doctor please call our office. If the office is closed listen to the entire message and at the end you will be given instructions how to reach the doctor on-call for our practice.) Diet/Activity/Treatments Diet: Diet as Tolerated Activity: Do not drive into your pain-free off medication and have good motion of your chest wall in arm. Skin/Wound/Dressing Care Report to your healthcare provider any signs of infection, such as:: increased pain, unusual drainage and unusual redness Dressing: You may remove the Kemal wrap at any time you desire. You may remove the plastic dressing and gauze under it in 2 or 3 days if you so desire and shower. You should placed dressings around the tube sites after your showers complete. Add some antibiotic ointment to the site. Alternatively you can leave her dressing intact and I will take it off when I see you on Friday. Visit Report/Discharge Packet Instructions: DI for Mastectomy, How to Use and Care for Your Ubaldo-Gonzalez Drain, DI for Postoperative Pain, DI for Prescription Opioid Use, Oxycodone, Gabapentin, [facility]: Wound Care Discharge Data Primary Care Provider: Miguelangel Curry Attending Provider: Renny Benton
--- NOTE | 2020-08-29 11:56 | PC.NURSE ---
Day Shift- Pt left chest incision covered with intact gauze and tegaderm dressing with overlapping gregor wrap. there is approx 25% sang drainage shadowing to left distal end of dressing. [address] on bulb suction. out put for A & B drain were 18mls each. Instructed pt on emptying and caring for her drains, pt able to return demonstrate emptying of drain. Pt instructed to record amount, day, time, color, of drain fluid after emptying several times per day and keeping bulb less than 2/3 full. Pain controlled with PRn Oxycodone, last dose given prior to discharge for 5/10 pain aching to incision area and for comfort of travel home. Discharge summary packet reviewed with pt including but not limited to S/S of infection, dressing care, shower precautions, drain care, preventing constipation, pain management, prescriptions. No further voiced cocnerns. pt aware of follow up appointment at Dr. Benton's office. Pt states having all her personal belongings present upon discharge. Pt left unit at 1159 in no distress via wheelchair with FEED MIXER HELPER escort. pt's present at ED entrance to drive pt home.
--- NOTE | 2020-08-29 13:58 | CM.DANOTE ---
Discharge Planning/Care Management DCPlanning: note: Case received and discussed in Team Rounds. Dr. Benton had ok'd pt for home today after drain teaching by KRIS Arreguin. A check in now shows that all went smoothly with the teaching process and pt left in company of her about 1200 with followup planned at [facility]. Payer: [facility] PCP: Dr. Curry No concerns re the d/c for today were noted by the care team members. Pre-Anesthesia Assessment Start: 08/25/20 10:56 Freq: Status: Complete Protocol: Document 08/25/20 10:56 [facility] (Rec: 08/25/20 11:46 CAB [id number]) Pre-Anesthesia Assessment Patient Information Reviewed Via Chart Review Primary Care Provider Miguelangel Curry Seen Specialist in Last 12 Months Yes Specialist Seen General surgeon,Oncologist Primary Language German Customer Sales Consultant Required No Height 168.91 cm Weight 60.8 kg Body Mass Index (BMI) 21.3 Barriers to Learning None Anesthesia Review Requested No Gas Engine Mechanic No alcohol intake current Smoking Status Former smoker History of Falling (Recent or History of No ) Patient is completely paralyzed or No completely immobile Mental Status Oriented to own ability Is patient on oxygen? No Does patient have BAKER/SOB No Hx Sleep Apnea No Currently Taking a Beta Ritesh No Hx Chest Pain No Hx SOB No Hx Syncope or Dizziness No Anti-Coagulant Therapy No Has a Digital Marketing Intern No Cardiac Testing No Hx Pacemaker/ICD No Pacemaker Rep Required? No Cardiac Clearance Received Not Applicable Urinary Catheter Present No Hx Urinary Self Catheterization No Diabetes No Patient No Lactating No Presence of External or Internal Medical Yes: Left breast clips Devices Have you had any close contact with Unknown someone diagnosed with COVID-19? Marital Status Lives With spouse,children Support System Spouse Patient Discharge Plan Description Return Home
== END 2020-08-29 11:59 | disposition home or self-care (01) ==
LOC: OR 07:33 → AC 07:34
PROVIDERS: PCP Internal Medicine; Referring Provider Specialist; Visit Provider Specialist
PROC: 0HTU0ZZ Resection of Left Breast, Open Approach (ICD-10-PCS; CPT 19307; principal; 2020-08-28 12:45)
DX: C50.011 Malignant neoplasm of nipple and areola, right female breast (principal); C77.3 Secondary and unspecified malignant neoplasm of axilla and upper limb lymph nodes; Z17.0 Estrogen receptor positive status [ER+]; F41.9 Anxiety disorder, unspecified; F32.9 Major depressive disorder, single episode, unspecified
CPT/HCPCS: 19307; 19285; 77065; 82962; J0690; J1100; J1170; J2405; J2704; J3010

== ENCOUNTER → 2020-09-07 08:00 | Outpatient (CLI) | payer OTHER, SELFPAY ==
[2020-08-29 10:57] VITALS: BMI 21.3
--- NOTE | 2020-09-07 08:02 | DI.ECHO.S_ITS ---
[facility]---------+ [facility] +---------+ : : [address] : : : : [id number] : : : : Phone: [phone] Echocardiogram Report + + :Name: YUKI MONCADA Study Date: 09/07/2020 Height: 66 in : :[facility] Weight: 136 lb : : Gender: Female BSA: 1.7 m2 : :: 1970 Age: 50 yrs BP: 137/78 mmHg: :Reason For Study: PRE CHEMO : :Ordering Physician: MELANIE, : :JORGE Performed By: Sandra Gillespie : :Referring: JORGE NAVARRO : + + Interpretation Summary 1) Normal left ventricular thickness and size with low normal systolic function (EF 50-55%). Left ventricular global longitudinal strain average is - 19.7%. 2) Normal right ventricular size and function. 3) No significant valvular abnormalities. 4) No prior Echo available for comparison. Procedure: A two-dimensional transthoracic echocardiogram with color flow and Doppler was performed. The study quality was technically adequate. There is no prior echocardiogram noted for this patient. The patient was in sinus rhythm with heart rates between 68-74 bpm during the exam. Left Ventricle: The left ventricle is normal in size and wall thickness. Left ventricular global longitudinal strain average is -19.7%. The ejection fraction is estimated to be 50-55%. Diastolic parameters suggest probable normal left ventricular diastolic function and normal filling pressures. Right Ventricle: The right ventricle is normal in size and function. Atria: The left atrium is mildly dilated. Right atrial size is normal. There is no Doppler evidence for an interatrial shunt. Mitral Valve: The mitral valve is normal in structure and function. There is trace mitral regurgitation. Aortic Valve: The aortic valve is trileaflet. The aortic valve opens well. There is no aortic valve stenosis. No aortic regurgitation is present. Tricuspid Valve: The tricuspid valve is normal in structure and function. There is mild tricuspid regurgitation. Pulmonic Valve: The pulmonic valve is not well visualized. There is no pulmonic valvular regurgitation. Great Vessels: The aortic root is normal size. The dimensions of the ascending aorta are normal. The IVC is of normal diameter and collapses greater than 50% with a sniff. This suggests a low right atrial pressure of 3 mm Hg. Pericardium/ Pleura There is no pericardial effusion. There is no pleural effusion. MMode/2D Measurements & Calculations LVIDd: 4.8 cm LVOT diam: 2.0 cm LVIDs: 3.5 cm Ao root diam: 3.2 cm FS: 25.5 % asc Aorta Diam: 3.0 cm EPSS: 0.88 cm Ao Arch Diam (Prox Trans): 2.5 cm IVSd: 0.79 cm LVPWd: 0.95 cm LV regalado. diameter/BSA (cm/m^2): 2.8 LV sys. diameter/BSA (cm/m^2): 2.1 LA A2 area: 19.7 cm2 RA long axis: 5.1 cm LA A4 area: 17.8 cm2 RA area: 14.8 cm2 LA length (vol): 5.1 cm RA vol: 36.5 ml LA vol: 58.2 ml RA : 21.5 ml/m2 LA vol index: 34.3 ml/m2 IVC diam: 1.4 cm RVD1 (basal): 3.1 cm TAPSE: 1.8 cm Doppler Measurements & Calculations Ao V2 max: 133.9 cm/sec LVOT Max Jordin: 91.4 cm/sec Ao V2 mean: 99.7 cm/sec LV V1 max P.3 mmHg Ao max P.2 mmHg LV V1 VTI: 19.6 cm Ao mean P.4 mmHg ADALBERTO(I,D): 2.0 cm2 Ao V2 VTI: 32.0 cm ADALBERTO(V,D): 2.2 cm2 sev ratio: 0.61 ADALBERTO indexed to BSA (cm^2/m^2): 1.2 MV E max jordin: 79.1 cm/sec TR max jordin: 213.9 cm/sec MV A max jordin: 59.0 cm/sec TR max P.3 mmHg MV E/A: 1.3 PA V2 max: 65.9 cm/sec Med Peak E' Jordin: 9.5 cm/sec PA V2 mean: 44.9 cm/sec E/E' med: 8.4 PA mean P.91 mmHg Lat Peak E' Jordin: 16.9 cm/sec PA pr(Accel): 13.5 mmHg E/E' lat: 4.7 E/e' average: 6.5 MV dec time: 0.13 sec SV(LVOT): 63.2 ml Reading Physician:10:18 AM
== END ==
PROVIDERS: PCP Internal Medicine; Referring Provider Internal Medicine; Visit Provider Internal Medicine
DX: Z01.818 Encounter for other preprocedural examination (principal); I07.1 Rheumatic tricuspid insufficiency; C50.412 Malignant neoplasm of upper-outer quadrant of left female breast; C77.3 Secondary and unspecified malignant neoplasm of axilla and upper limb lymph nodes
CPT/HCPCS: 93306

== ENCOUNTER → 2020-09-30 13:06 | Outpatient (CLI) | payer OTHER, SELFPAY ==
[2020-08-29 10:57] VITALS: BMI 21.3
[2020-09-30 15:02] LABS: COVID19 -Nasal RAPID Negative (Negative)
== END ==
PROVIDERS: PCP Internal Medicine; Visit Provider Physician Assistant
DX: Z20.828 Contact with and (suspected) exposure to other viral communicable diseases (principal)
CPT/HCPCS: 87635

== ENCOUNTER 2020-10-02 09:04 | Day surgery (SDC) | payer OTHER, SELFPAY ==
[2020-08-29 10:57] VITALS: BMI 21.3
[2020-09-27 08:10] VITALS: BMI 21.3
[2020-10-02] VITALS (8 sets, daily range): BP systolic 100–128; BP diastolic 59–82; PULSE 63–82; RESP 10–16; TEMP 36.4–37.3; O2SAT 97–100; BMI 21.3
--- NOTE | 2020-10-02 | DI.RAD.S_ITS ---
PROCEDURE: XR CHEST 1V INDICATIONS: post op TECHNIQUE: One view of the chest was acquired. COMPARISON: None. FINDINGS: Surgical changes and devices: Port-A-Cath from right-sided approach extends in normal position into the distal SVC. Lungs and pleura: Lungs are clear. No pleural effusions or pneumothorax. Mediastinum: Mediastinal contours appear normal. Heart size is normal. Bones and chest wall: No suspicious bony lesions. Overlying soft tissues appear unremarkable. IMPRESSION: No pneumothorax found after placement of right-sided Port-A-Cath in normal position. Dictated by: Felton Ralph M.D. on 10/02/2020 at 14:11 Approved by: Felton Ralph M.D. on 10/02/2020 at 14:12
[2020-10-02] MEDS: LACTATED RINGERS 1,000 ML 42 ML IV (09:19)
[2020-10-02] MEDS: CEFAZOLIN 1 GM/50 ML FROZ.PIGGY IV (12:40)
--- NOTE | 2020-10-02 12:47 | SUR.OPER ---
Supine on padded OR bed, head on pillow, arms padded and tucked at sides, legs uncrossed, safety belt at thigh, head on gel donut, towel roll between shoulder blades.
[2020-10-02] MEDS: HEPARIN 5,000 UNIT, SODIUM CHLORIDE 0.9% 50 ML IV (12:52)
[2020-10-02] MEDS: LIDOCAINE 1% 20 ML INJ (12:53)
--- NOTE | 2020-10-02 13:19 | PM.PREOP ---
Pre-operative Note COVID-19 COVID-19 status: Negative Result date/Date tested (Pos, Neg/Pending): 09/29/20 Interval Note History & Physical reviewed/Exam performed by Physician: Yes Changes to H&P: No H&P completed within 30 days and has changed as indicated here:: Once again reviewed the risks and benefits of placing a Port-A-Cath including bleeding, infection, lung collapse, DVT with arm swelling, possible pulmonary embolism. She appeared to understand wished to proceed.
--- NOTE | 2020-10-02 13:21 | PM.OP.1 ---
Operative Date/Time/Diagnoses Date of procedure: 10/02/20 Time of procedure: 13:21 Pre-op diagnosis: Breast cancer Post-op diagnosis: same Procedure & Clinicians Procedure: placement of right subclavian Port-A-Cath Same procedure as scheduled: Yes Indications: IV access for chemotherapy Surgeon: Renny Benton Click Yes if Unassisted: Yes Anesthesia Type: General Operative Notes Findings: tip in the distal SVC. Closure Type: primary Specimen(s): none sent Prosthetic devices, grafts, tissues, transplants, or devices: Slim Port-A-Cath Estimated Blood Loss (mL): 10 Blood products transfused: none Procedure in detail: patient is placed supine on the operating table and underwent general LMA anesthesia. She was prepped and draped in the usual fashion. Local anesthetic was infiltrated in a field block fashion beneath the right clavicle. A pocket was created inferior to the incision. the patient was placed in Trendelenburg a needle inserted on 1st attempt into the subclavian vein. For the reason the guidewire would not pass properly and therefore I had to slowly reposition the needle and ultimately was able to pass the guidewire without difficulty into the appropriate location based on fluoroscopic imaging. The needle was removed. The port and catheter were together and the port placed in the pocket. The catheter was tapered to appropriate length. Dilator and introducer were passed over the guidewire and the guidewire and dilator removed leaving the introducer in place. This was done under fluoroscopic visualization. The catheter was passed through the introducer and the introducer peeled away leaving the catheter in good position the distal SVC. The port was fixed to the chest wall with 2 0 silk suture. The port was aspirated and flushed with heparinized saline. The subQ was closed with interrupted 3 0 Vicryl. The skin was closed running 4-0 Vicryl subcuticular stitch and Steri-Strips. Dressing was applied the patient was awakened extubated taken to recovery room in good condition. Postprocedure x-ray revealed no evidence of pneumothorax and the tip in Good position in the SVC. Complications: none Post-operative Condition: stable Disposition: PACU Plan for aftercare: follow-up in office
--- NOTE | 2020-10-02 13:33 | SUR.PHASEI ---
Pt arrived with patent airway, denied nausea denied pain. Dr. Benton spoke with pt at bedside and Dr. Barclay returned to check on pt as well.
[2020-10-02] MEDS: OXYCODONE/ACETAMINOPHEN 5/325 TABLET 1 TAB PO (13:51)
--- NOTE | 2020-10-02 13:53 | SUR.PHASEII ---
Pt c/o pain 3/10 to r chest, medicated with percocet after pt tolerated applesauce.
== END 2020-10-02 14:16 | disposition home or self-care (01) ==
PROVIDERS: PCP Internal Medicine; Referring Provider Specialist; Visit Provider Specialist
PROC: (CPT 36561; principal; 2020-10-02 10:45)
DX: C50.412 Malignant neoplasm of upper-outer quadrant of left female breast (principal); Z17.0 Estrogen receptor positive status [ER+]; F41.9 Anxiety disorder, unspecified; F32.9 Major depressive disorder, single episode, unspecified
CPT/HCPCS: 36561; 71045; 76000; C1788; J1644; J2405; J2704; J3010

== ENCOUNTER → 2020-10-31 14:08 | Outpatient (CLI) | payer OTHER, SELFPAY ==
[2020-08-29 10:57] VITALS: BMI 21.3
--- NOTE | 2020-10-31 14:13 | DI.RAD.S_ITS ---
PROCEDURE: FL CATHETER PATENCY COMPARISON: [facility], CR, XR CHEST 1V, 10/02/2020, 13:24. INDICATIONS: port not working FINDINGS: A catheter patency study was performed. There is a Port-A-Cath in the right anterior chest. The tip of the catheter projects to the area of SVC. The right Port-A-Cath is accessed by oncology. There is mild resistance during forceful contrast injection. There is contrast flow around the catheter tip suggesting a fibrin sheath over the tip of the catheter. IMPRESSION: Mild obstruction of the catheter with resistance during forceful contrast injection. There is contrast flow around the catheter suggesting a fibrin sheath over the tip of the catheter. The result was discussed with Dr. Curran. Dictated by: Christian Ventura M.D. on 10/31/2020 at 15:17 Approved by: Christian Ventura M.D. on 10/31/2020 at 15:25
== END ==
PROVIDERS: PCP Internal Medicine; Referring Provider Internal Medicine; Visit Provider Internal Medicine
DX: T82.598A Other mechanical complication of other cardiac and vascular devices and implants, initial encounter (principal)
CPT/HCPCS: 76000

== ENCOUNTER → 2021-02-13 09:18 | Outpatient (CLI) | payer OTHER, SELFPAY ==
[2020-08-29 10:57] VITALS: BMI 21.3
[2021-02-13 10:23] LABS: COVID19 -Nasal RAPID Negative (Negative)
== END ==
PROVIDERS: PCP Internal Medicine; Visit Provider Specialist
DX: Z20.822 Contact with and (suspected) exposure to COVID-19 (principal)
CPT/HCPCS: 87635; C9803

== ENCOUNTER 2021-02-14 10:43 | Day surgery (SDC) | payer OTHER, SELFPAY ==
[2020-08-29 10:57] VITALS: BMI 21.3
[2021-02-14] VITALS (7 sets, daily range): BP systolic 109–126; BP diastolic 57–74; PULSE 67–85; RESP 12–16; TEMP 36.2–37; O2SAT 97–100; BMI 22.6
[2021-02-14] MEDS: LACTATED RINGERS 1,000 ML 100 ML IV (11:12)
--- NOTE | 2021-02-14 11:20 | PM.HP.1 ---
History of Present Illness History of Present Illness Date Patient Seen: 02/14/21 Time Patient Seen: 11:20 Chief complaint: PORT REMOVAL Narrative: Patient is woman who has completed chemotherapy for breast cancer. She is here to have her port removed. Patient History Medical History Anxiety state, unspecified Depression Surgical History Hx of left mastectomy (08/28/20) Status post delivery (08/19/96) Status post delivery (10/25/98) Status post delivery (12/25/00) Status post tubal ligation (12/25/00) Family & Social History Family History Brother Age: 57 Hypertension High cholesterol Father Age: 84 Heart disease Hypertension High cholesterol Social History: household members spouse,children Tobacco & Substance use: Smoking Status Former smoker alcohol intake current alcohol intake frequency a few times a month Substance Use Type does not use Meds Home Medications and Allergies Home Medications Medication Instructions Recorded Confirmed Type vitamin C 500 mg-multivitamin with 1 tab PO DAILY 07/04/20 02/14/21 History minerals chewable tablet Centrum Silver 1 tab-cap PO DAILY 10/02/20 02/14/21 History bupropion HCl 150 mg tablet,12 hr 150 mg PO BID #180 tab 01/16/21 02/14/21 Rx sustained-release acetaminophen 650 mg PO Q6H PRN 02/14/21 02/14/21 History Allergies Allergy/AdvReac Type Severity Reaction Status Date / Time No Known Drug Allergies Allergy Verified 09/12/20 15:08 Review of Systems Review of Systems ROS: Yes All systems reviewed with the patient and are negative except as otherwise documented Exam Vital Signs (past 8 hours): - 02/14/21 11:08 Temperature 97.8 F Pulse Rate 78 Respiratory Rate 16 Blood Pressure 126/74 Pulse Oximetry 100 Oxygen Delivery Method Room Air Narrative Exam Narrative: No apparent distress. Lungs are clear to auscultation no rales or rhonchi heart regular rate and rhythm without murmur gallop. Skin of the chest baeza without rash or irritation. Port is in the right infraclavicular fossa. Assessment & Plan Assessment & Plan narrative: Patient for Port-A-Cath removal. I have discussed the procedure with her including risks of bleeding infection and the possibility of a divot where it is removed. All questions were answered and she wished to proceed.
--- NOTE | 2021-02-14 11:22 | PM.PREOP ---
Pre-operative Note COVID-19 COVID-19 status: Negative Result date/Date tested (Pos, Neg/Pending): 02/13/21 Interval Note History & Physical reviewed/Exam performed by Physician: Yes Changes to H&P: No
[2021-02-14] MEDS: CEFAZOLIN 2 GM/100 ML FROZ.PIGGY IV (11:30)
[2021-02-14] MEDS: BUPIVACAINE 0.5% (PF) VIAL 30 ML INJ (11:49)
--- NOTE | 2021-02-14 12:21 | PM.OP.1 ---
Operative Date/Time/Diagnoses Date of procedure: 02/14/21 Time of procedure: 12:21 Pre-op diagnosis: History of breast cancer post chemotherapy Post-op diagnosis: same Procedure & Clinicians Procedure: Removal of Port-A-Cath Same procedure as scheduled: Yes Indications: Removed Port-A-Cath which is no longer needed. Surgeon: Renny Benton Click Yes if Unassisted: Yes Anesthesia Type: General Operative Notes Findings: Removed port intact Closure Type: primary Specimen(s): none sent Prosthetic devices, grafts, tissues, transplants, or devices: None Estimated Blood Loss (mL): 5 Blood products transfused: none Procedure in detail: Patient was placed supine on the operating room table underwent general LMA anesthesia. She was prepped and draped in the usual fashion. Local anesthetic was infiltrated in a field block fashion around the port. Incision was made through the old scar and carried down level the port. The catheter was identified from surrounding structures. A 3-0 Vicryl pursestring was placed around it and the catheter was removed and the pursestring cinched down to prevent backbleeding. The port as well as its anchoring sutures were then removed principally with cautery. Subcu was closed with interrupted 3-0 Vicryl and skin was closed running 4-0 Vicryl subcuticular stitch and Steri-Strips. There was a skin bleeder which I placed a 4-0 Vicryl figure of 8 over to control the oozing once closure was completed. This was successful. This will be removed in the office. Complications: none Post-operative Condition: stable Disposition: PACU
[2021-02-14] MEDS: HYDROCODONE/ACET 5/325 TABLET 1 TAB PO ×2 (12:29→13:00)
== END 2021-02-14 13:06 | disposition home or self-care (01) ==
PROVIDERS: PCP Internal Medicine; Referring Provider Specialist; Visit Provider Specialist
PROC: (CPT 36590; principal; 2021-02-14 11:45)
DX: Z45.2 Encounter for adjustment and management of vascular access device (principal); F41.9 Anxiety disorder, unspecified; F32.9 Major depressive disorder, single episode, unspecified
CPT/HCPCS: 36590; 82962; J0690; J1100; J2250; J2405; J2704; J3010

== ENCOUNTER → 2022-03-05 09:16 | Outpatient (CLI) | payer OTHER, SELFPAY ==
[2020-08-29 10:57] VITALS: BMI 21.3
--- NOTE | 2022-03-05 09:17 | DI.MG.S_ITS ---
UNILATERAL RIGHT DIGITAL SCREENING MAMMOGRAM 3D/2D WITH CAD POST MASTECTOMY: 03/05/2022 CLINICAL: Routine screening. Personal history of left breast cancer. Comparison is made to exams dated: 01/30/2021 mammogram - [facility], 05/15/2020 mammogram - [facility], and 01/30/2021 ultrasound - [facility]. The tissue of right breast is heterogeneously dense. This may lower the sensitivity of mammography. Current study was also evaluated with a Computer Aided Detection (CAD) system. No significant masses, calcifications, or other findings are seen in the breast. There has been no significant interval change. IMPRESSION: NEGATIVE There is no mammographic evidence of malignancy. A 1 year screening mammogram is recommended. This exam was interpreted at Station ID: [id number]. NOTE: For mammograms, a report in lay terms will be sent to the patient. Approximately 15% of breast malignancies will not be visualized mammographically. In the management of a palpable breast mass, a negative mammogram must not discourage biopsy of a clinically suspicious lesion. Electronically Signed By: Antony morel/kathryn:03/05/2022 09:47:30 letter sent: Normal Exam ACR BI-RADS Category 1: Negative [id number]
== END ==
PROVIDERS: PCP Internal Medicine; Referring Provider Internal Medicine Medical Oncology; Visit Provider Internal Medicine Medical Oncology
DX: Z12.31 Encounter for screening mammogram for malignant neoplasm of breast (principal); C77.3 Secondary and unspecified malignant neoplasm of axilla and upper limb lymph nodes; Z85.3 Personal history of malignant neoplasm of breast
CPT/HCPCS: 77063; 77067

== ENCOUNTER → 2023-04-23 11:28 | Outpatient (CLI) | payer OTHER, SELFPAY ==
[2020-08-29 10:57] VITALS: BMI 21.3
--- NOTE | 2023-04-23 11:29 | DI.MG.S_ITS ---
UNILATERAL RIGHT DIGITAL SCREENING MAMMOGRAM 3D/2D WITH CAD WITH AUGMENTATION: 04/23/2023 CLINICAL: Routine screening. Personal history of left breast cancer. Right Implant. Comparison is made to exams dated: 03/05/2022 mammogram - [facility], 01/30/2021 ultrasound, 01/30/2021 mammogram - [facility], 08/28/2020 mammogram, and 06/19/2020 mammogram - [facility]. The right breast is heterogeneously dense, which may obscure small masses (category c / 51-75% glandular tissue). Current study was also evaluated with a Computer Aided Detection (CAD) system. There is a focal asymmetry in the right breast at 1 o'clock middle depth. No other significant masses or calcifications are seen in the breast. IMPRESSION: INCOMPLETE: NEEDS ADDITIONAL IMAGING EVALUATION The focal asymmetry in the right breast is indeterminate. Additional views with possible ultrasound are recommended. The right implant is intact. This exam was interpreted at Station ID: [id number]. NOTE: For mammograms, a report in lay terms will be sent to the patient. Approximately 15% of breast malignancies will not be visualized mammographically. In the management of a palpable breast mass, a negative mammogram must not discourage biopsy of a clinically suspicious lesion. Electronically Signed By: Estee cox/:04/23/2023 16:26:03 letter sent: Additional Imaging Needed ACR BI-RADS Category 0: Incomplete [id number]
== END ==
PROVIDERS: PCP Internal Medicine; Referring Provider Internal Medicine Medical Oncology; Visit Provider Internal Medicine Medical Oncology
DX: Z12.31 Encounter for screening mammogram for malignant neoplasm of breast (principal); C50.919 Malignant neoplasm of unspecified site of unspecified female breast; C77.3 Secondary and unspecified malignant neoplasm of axilla and upper limb lymph nodes; Z98.82 Breast implant status
CPT/HCPCS: 77063; 77067

== ENCOUNTER → 2023-05-05 09:27 | Outpatient (CLI) | payer OTHER, SELFPAY ==
[2020-08-29 10:57] VITALS: BMI 21.3
--- NOTE | 2023-05-05 | DI.MG.S_ITS ---
UNILATERAL RIGHT DIGITAL DIAGNOSTIC MAMMOGRAM 3D/2D WITH ADDITIONAL VIEWS: 05/05/2023 CLINICAL: Additional evaluation requested from prior study. Comparison is made to exams dated: 04/23/2023 mammogram, 03/05/2022 mammogram - [facility], and 01/30/2021 mammogram - [facility]. The right breast is heterogeneously dense, which may obscure small masses (category c / 51-75% glandular tissue). There is a focal asymmetry in the right breast at 1 o'clock middle depth. This is seen in additional views. No other significant masses or calcifications are seen in the breast. IMPRESSION: INCOMPLETE: NEEDS ADDITIONAL IMAGING EVALUATION The focal asymmetry in the right breast likely represents a cyst and is indeterminate. A targeted ultrasound of the right breast is recommended and will be performed immediately following this exam. This exam was interpreted at Station ID: [id number]. NOTE: For mammograms, a report in lay terms will be sent to the patient. Approximately 15% of breast malignancies will not be visualized mammographically. In the management of a palpable breast mass, a negative mammogram must not discourage biopsy of a clinically suspicious lesion. Electronically Signed By: Estee Colindres M.D. lk/:05/05/2023 09:53:06 ACR BI-RADS Category 0: Incomplete 3340F
--- NOTE | 2023-05-05 09:28 | DI.US.S_ITS ---
ULTRASOUND OF RIGHT BREAST: 05/05/2023 CLINICAL: Additional views of right breast. Comparison is made to exams dated: 05/05/2023 mammogram, 04/23/2023 mammogram, 03/05/2022 mammogram - [facility], 01/30/2021 ultrasound, and 01/30/2021 mammogram - [facility]. Ultrasound of the right breast was performed on the area of interest. Cash scale images of the real-time examination were reviewed. There is a 1.7 cm x 1.1 cm x 2.1 cm oval cyst in the right breast at 1 o'clock middle depth. This oval cyst is anechoic with a well-defined boundary and posterior acoustic enhancement. This correlates with mammography findings. Color flow imaging demonstrates that there is no vascularity present. IMPRESSION: BENIGN There is no sonographic evidence of malignancy. The 1.7 cm x 1.1 cm x 2.1 cm oval cyst in the right breast is benign. Return to annual mammogram screening schedule is recommended. This exam was interpreted at Station ID: [id number]. Electronically Signed By: Estee cox/:05/05/2023 10:07:42 letter sent: Normal Exam Ultrasound BI-RADS: 2 Benign
== END ==
PROVIDERS: PCP Internal Medicine; Referring Provider Internal Medicine Hematology & Oncology; Visit Provider Internal Medicine Hematology & Oncology
DX: R92.8 Other abnormal and inconclusive findings on diagnostic imaging of breast (principal); N60.01 Solitary cyst of right breast
CPT/HCPCS: 76642; 77065; G0279

== ENCOUNTER → 2023-06-07 08:27 | Outpatient (CLI) | payer OTHER, SELFPAY ==
[2020-08-29 10:57] VITALS: BMI 21.3
[2023-06-10 17:45] LABS: Fecal Immunochemical Test Negative (Negative)
== END ==
PROVIDERS: PCP Internal Medicine; Referring Provider Internal Medicine; Visit Provider Internal Medicine
DX: Z12.11 Encounter for screening for malignant neoplasm of colon (principal); Z12.12 Encounter for screening for malignant neoplasm of rectum
CPT/HCPCS: 82274

== ENCOUNTER → 2024-01-29 10:10 | Outpatient (CLI) | payer OTHER, SELFPAY ==
[2020-08-29 10:57] VITALS: BMI 21.3
--- NOTE | 2024-01-29 10:12 | DI.RAD.S_ITS ---
PROCEDURE: XR FOOT RT MIN 3V INDICATIONS: Bunion of right foot TECHNIQUE: 3 views of the foot were acquired. COMPARISON: None. FINDINGS: Bones: No fractures or dislocations. Mild hallux valgus angulation of the 1st MTP with medial bunion formation. No suspicious bony lesions. Soft tissues: No tibiotalar joint effusion. Achilles tendon appears normal. IMPRESSION: 1. No acute bony abnormality. 2. Mild hallux valgus angulation of the 1st MTP with medial bunion formation. 3. Mild degenerative changes. Dictated by: Yair Araujo M.D. on 01/29/2024 at 13:12 Approved by: Yair Araujo M.D. on 01/29/2024 at 13:14
== END ==
PROVIDERS: PCP Internal Medicine; Referring Provider Podiatrist Foot & Ankle Surgery; Visit Provider Podiatrist Foot & Ankle Surgery
DX: M20.11 Hallux valgus (acquired), right foot (principal); M21.611 Bunion of right foot
CPT/HCPCS: 73630

== ENCOUNTER → 2024-02-04 13:06 | Outpatient (CLI) | payer OTHER, SELFPAY ==
[2020-08-29 10:57] VITALS: BMI 21.3
--- NOTE | 2024-02-04 13:09 | DI.RAD.S_ITS ---
PROCEDURE: XR FOOT RT MIN 3V INDICATIONS: BUNION RIGHT FOOT TECHNIQUE: 4 views of the foot were acquired. COMPARISON: [facility], , XR FOOT RT MIN 3V, 01/29/2024, 10:13. FINDINGS: Bones: There is moderate hallux valgus. Osteoarthritic changes are noted at 1st MTP joint and 1st interphalangeal joint. No acute fracture or dislocation. No gross bony erosive changes or suspicious bony lesions. Soft tissues: No tibiotalar joint effusion. Achilles tendon appears normal. IMPRESSION: Moderate hallux valgus with [id number] right foot osteoarthritis most notably in great toe as above. No fracture or dislocation. No suspicious bony lesions. Dictated by: Miguel Mccarthy M.D. on 02/04/2024 at 15:35 Approved by: Miguel Mccarthy M.D. on 02/04/2024 at 15:36
== END ==
PROVIDERS: PCP Internal Medicine; Referring Provider Podiatrist Foot & Ankle Surgery; Visit Provider Podiatrist Foot & Ankle Surgery
DX: M21.611 Bunion of right foot (principal); M20.11 Hallux valgus (acquired), right foot; M19.071 Primary osteoarthritis, right ankle and foot
CPT/HCPCS: 73630

== ENCOUNTER → 2024-03-03 13:25 | Outpatient (CLI) | payer OTHER, SELFPAY ==
[2020-08-29 10:57] VITALS: BMI 21.3
[2024-03-03 14:10] LABS: Hematocrit 36.9 % (36-46); Hemoglobin 12.6 g/dL (12.0-16.0); Mean Corpuscular HGB Conc 34.2 % (30-36); Mean Corpuscular Hemoglobin 31.6 PG (26-34); Mean Corpuscular Volume 92.3 fL (80-100); Platelet Count 178 X10^3/uL (150-400); Red Cell Distribution Width 13.3 % (11.6-14.8)
[2024-03-03 14:22] LABS: INR 1.1 (0.9-1.3); Prothrombin Time 12.2 SECONDS (9.4-12.5)
[2024-03-03 14:38] LABS: BUN Creatinine Ratio 16.1 (6-22); Blood Urea Nitrogen 15 mg/dL (7-17); Calcium 9.1 mg/dL (8.4-10.2); Carbon Dioxide 32 mmol/L (22-32); Chloride 105 mmol/L (98-107); Estimated Glomerular Filt Rate > 60 mL/min (>60); Glucose 102 mg/dL (70-100); HEMOLYSIS < 15 (0-50); Potassium 3.7 mmol/L (3.4-5.1); Sodium 140 mmol/L (137-145)
[2024-03-03 16:44] LABS: Vitamin D 25 Hydroxy (D3) 51.9 ng/mL (30.0-100.0)
== END ==
PROVIDERS: PCP Internal Medicine; Referring Provider Podiatrist Foot & Ankle Surgery; Visit Provider Podiatrist Foot & Ankle Surgery
DX: Z01.818 Encounter for other preprocedural examination (principal)
CPT/HCPCS: 36415; 80048; 82306; 85027; 85610

== ENCOUNTER 2024-03-15 06:48 | Day surgery (SDC) | payer OTHER, SELFPAY ==
[2020-08-29 10:57] VITALS: BMI 21.3
[2024-03-10 14:40] VITALS: BMI 22.4
--- NOTE | 2024-03-14 20:54 | PM.HP.1 ---
History of Present Illness History of Present Illness Chief complaint: Right Bunionectomy Narrative: 53 year old female here for bunion pre-op. Patient states the condition has started and progressed over the past 3 years. Patient denies family history of the disease. Patient is s/p mastectomy and adjunctive chemotherapy and suffers from depression. Patient is interested in proceeding with Lapiplasty, a procedure she found on the internet. The bunion pain is aggravated by pressure and ambulation. Patient works from home, which has hardwood floors. Patient usually wear Vancleve shoes. Patient had obtained medical clearance from primary care physician. Patient denies n/v/f/c/sob/cp. [facility] Medical History Breast cancer metastasized to axillary lymph node Endocervical polyp Depression Anxiety state, unspecified Surgical History (Updated 03/10/24 @ 14:45 by Elaina Maldonado RN) History of removal of Port-a-Cath (02/14/21) History of surgery (10/02/20) Hx of left mastectomy (08/28/20) Status post tubal ligation (12/25/00) Status post delivery (12/25/00) Status post delivery (10/25/98) Status post delivery (08/19/96) Family History Brother Age: 60 Hypertension High cholesterol Father Age: 87 Heart disease Hypertension High cholesterol Social History marital status: household members: spouse and children occupational status: employed Smoking Status: Former smoker alcohol intake: current Meds Home Medications and Allergies Home Medications Medication Instructions Recorded Confirmed Type Centrum Silver 1 tab-cap PO DAILY 10/02/20 02/02/24 History Lactobacillus reuteri 100 million cell PO 04/07/23 02/02/24 History cell chewable tablet calcium 300 mg chewable tablet mg PO 04/07/23 02/02/24 History bupropion HCl 150 mg tablet,12 hr 150 mg PO BID #180 tabs 06/27/23 02/02/24 Rx sustained-release (Wellbutrin SR) trazodone 50 mg tablet 50 - 100 mg (1 - 2 x 50 mg) PO 06/27/23 02/02/24 Rx BEDTIME #180 tabs letrozole 2.5 mg tablet (Femara) 2.5 mg PO DAILY #90 tabs 08/07/23 02/02/24 Rx citalopram 10 mg tablet 10 mg PO DAILY #90 tabs 02/02/24 02/02/24 Rx Allergies Allergy/AdvReac Type Severity Reaction Status Date / Time No Known Drug Allergies Allergy Verified 02/02/24 13:52 Review of Systems Review of Systems Narrative: Negative except as mentioned in HPI. Exam Neuro Other: RLE: NV intact. Extrem Other: RLE: Hypermobility of first ray and instability of lesser tarsal joints. Adequate 1st MTP ROM. Moderate medial deviation of metatarsal 1 and lateral deviation, slightly overriding toe 2. Mild tailor's bunion. Assessment & Plan Assessment & Plan narrative: 1. Right foot flail joint. 2. Right foot bunion. 3. Right foot pain. Patient seen and evaluated. Reviewed medical H&P from primary care physician and ordered labs. Surgical plan: right midfoot fusion and right bunion correction. Risks and benefits of the procedure discussed with all questions answered to patient's satisfaction. Reviewed potential complications that may include but not limited to the following: DVT, failure to resolve all symptoms, infection, nerve injury, bleeding, recurrence, or wound. Reviewed aftercare protocols. Patient verbalized understanding, agreed with surgical plan, and elected to proceed with all questions answered to satisfaction and no guarantees made. RTC for post-op.
--- NOTE | 2024-03-15 | DI.RAD.S_ITS ---
PROCEDURE: XR FOOT RT MIN 3V INDICATIONS: Post-op TECHNIQUE: 3 views of the foot were acquired. COMPARISON: [facility], CR, XR FOOT RT MIN 3V, 02/04/2024, 13:15. [facility], CR, XR FOOT RT MIN 3V, 01/29/2024, 10:13. FINDINGS: Bones: 1st tarsometatarsal arthrodesis and surgical fusion of the cuboid bones. No hardware complication. Resolved hallux valgus. First MTP joint space narrowing with osteophytosis. Soft tissues: No tibiotalar joint effusion. Achilles tendon appears normal. IMPRESSION: Midfoot arthrodesis without hardware complication. Dictated by: Valentin Pablo M.D. on 03/15/2024 at 15:52 Approved by: Valentin Pablo M.D. on 03/15/2024 at 15:53
--- NOTE | 2024-03-15 07:50 | PM.PREOP ---
Pre-operative Note Interval Note History & Physical reviewed/Exam performed by Physician: Yes Changes to H&P: No
[2024-03-15] MEDS: CEFAZOLIN 2 GM/100 ML PREMIX 100 ML IV (08:12)
[2024-03-15 08:14] VITALS: BP 125/74; PULSE 63; RESP 17; TEMP 36.8; O2SAT 100; BMI 22.1
--- NOTE | 2024-03-15 08:19 | SUR.PREOP ---
Time out 0751. Block start time 0752 . Monitoring initiated and maintained throughout procedure. Oxygen and medications given per anesthesiologist instructions. Patient remained stable throughout procedure, no adverse reactions noted. Block end time 0800.
[2024-03-15] MEDS: BUPIVACAINE 0.5% (PF) 30 ML VIAL INJ (08:51)
--- NOTE | 2024-03-15 08:54 | SUR.OPER ---
Supine on padded OR bed, head on pillow, arms secured on padded arm boards at <90 degrees abduction, legs uncrossed, nonoperative leg taped over blanket, safety belt at abdomen, bump placed under operative thigh.
[2024-03-15] MEDS: VANCOMYCIN 1,000 MG VIAL 1000 MG TOP (12:16)
[2024-03-15 13:00] VITALS: BP 120/73; PULSE 62; RESP 12; TEMP 36.1; O2SAT 96
[2024-03-15 13:05] VITALS: BP 115/74; PULSE 63; RESP 12; O2SAT 96
[2024-03-15 13:10] VITALS: BP 110/71; PULSE 72; RESP 14; O2SAT 99
[2024-03-15 13:15] VITALS: BP 116/71; PULSE 71; RESP 12; O2SAT 99
[2024-03-15] MEDS: LACTATED RINGERS 1,000 ML 42 ML IV (13:19)
--- NOTE | 2024-03-16 21:02 | P.OP_ITS ---
Operative Date/Time/Diagnoses Date of procedure: 03/15/24 Pre-op diagnosis: 1. Right foot flail midfoot joints 2. Right foot bunion Post-op diagnosis: same Procedure & Clinicians Procedure: 1. Right midfoot arthrodesis 2. Right modified [place] bunionectomy with EHL tendon lengthening Same procedure as scheduled: Yes Indications: 1. Right midfoot hypermobility and instability 2. Right foot hallux abductovalgus deformity Surgeon: Adrian Pascual Yes if Unassisted: Yes Anesthesia Type: General Operative Notes Findings: Reduction of intermetatarsal angle to anatomical range. Closure Type: primary Prosthetic devices, grafts, tissues, transplants, or devices: Lapiplasty Applied: graft(s) (AmnioEffect) Estimated Blood Loss (mL): 25 Blood products transfused: none Tourniquet time (min): 150 Procedure in detail: Patient was identified and brought into the operating room via gurney then transferred onto the operating table. Regional block was performed in the pre-op holding area. Patient was in supine position through out the duration of procedure. A thigh tourniquet was applied and set at 275 mmHg for a total of 150 minutes after exsanguination with Esmarch. Marked right foot was verified and prepped in usual sterile fashion. Timeout was performed with surgical team all in agreement. Attention was directed to right midfoot and forefoot. A linear incision was performed medial to the EHL over the 1st metatarsocuneiform joint. Dissection was carried in layers from skin down to the bone with care to identify and retract all neurovascular structures. The joint was opened using #15 scalpel and then planed with sagittal saw. Attention was then directed to the distal first interspace, where a small linear incision was made and deepened to allow for release of lateral first metatarsophalangeal joint capsule using #15 scalpel. Attention was then returned to the midfoot, where rotational deformity was verified on fluoroscopy. Following manufacture instructions, the IM angle was reduced and maintained with a designated positioner. A specialized cut guide was then used to perform appropriate resection of the subchondral bone, which was fenestrated using a drill bit and curette. The joint was then compressed with two plates at near perpendicular angles. Reduction of bunion deformity and hypermobility of tarsometatarsal joint was achieved. To further minimize intercuneiform instability, decision was made to insert a 3.5 mm screw across the intercuneiform joints. Attention was then directed to EHL tendon, which was noted to be overly taut following reduction of bunion deformity. Decision was made to perform Z- lengthening using a #15 scalpel, and sagittal position of hallux was restored. Due to thin periosteum and tendon lengthening, decision was made to augment the deep soft tissue structures with AmnioEffect. Procedure sites were irrigated using copious saline and closed in layers from deep to superficial using 2-0, 3- 0, and 4-0 vicryls and 3-0 and 4-0 nylons. Vancomycin powder was added prior to full closure, and incision sites were dressed with appropriate sterile dressing. A posterior splint was applied over well-padded surface and secured with elastic bandage wraps. All counts were correct. Patient tolerated procedure without complication. Complications: none Post-operative Condition: stable Disposition: same day surgery Plan for aftercare: Keep dressings clean, dry, and intact. NWB to surgical limb. Ice behind knee 15 min/hr. Elevate above heart on 2+ pillows. Take medications as directed. Follow- up as scheduled.
== END 2024-03-15 14:05 | disposition home or self-care (01) ==
PROVIDERS: PCP Internal Medicine; Referring Provider Podiatrist Foot & Ankle Surgery; Visit Provider Podiatrist Foot & Ankle Surgery
PROC: 0QBN0ZZ Excision of Right Metatarsal, Open Approach (ICD-10-PCS; CPT 28292; principal; 2024-03-15 07:45)
DX: M25.271 Flail joint, right ankle and foot (principal); M21.611 Bunion of right foot; F32.A Depression, unspecified; Z85.3 Personal history of malignant neoplasm of breast; Z87.891 Personal history of nicotine dependence
CPT/HCPCS: 28740; 28292; 64450; 73630; C1713; J0690; J1100; J2250; J2405; J2704; J3010

== ENCOUNTER → 2024-04-14 07:57 | Outpatient (CLI) | payer OTHER, SELFPAY ==
[2020-08-29 10:57] VITALS: BMI 21.3
--- NOTE | 2024-04-14 07:59 | DI.RAD.S_ITS ---
PROCEDURE: XR FOOT RT MIN 3V INDICATIONS: POST OP, SURGERY March, WB VIEWS TECHNIQUE: 3 views of the foot were acquired. COMPARISON: [facility], CR, XR FOOT RT MIN 3V, 03/15/2024, 13:31. [facility], CR, XR FOOT RT MIN 3V, 02/04/2024, 13:15. FINDINGS: Bones: Arthrodesis hardware in the midfoot and 1st TMT. Overall appearance is similar to prior. Mild 1st MTP degenerative changes. No acute displaced fracture or dislocation. Similar lucency at the base of the 2nd metatarsal base. Soft tissues: No significant calcifications. IMPRESSION: Similar radiograph compared to previous. Similar appearance of the arthrodesis hardware. Dictated by: Tanner Ramos M.D. on 04/14/2024 at 9:42 Approved by: Tanner Ramos M.D. on 04/14/2024 at 9:47
== END ==
PROVIDERS: PCP Internal Medicine; Referring Provider Podiatrist Foot & Ankle Surgery; Visit Provider Podiatrist Foot & Ankle Surgery
DX: Z47.89 Encounter for other orthopedic aftercare (principal)
CPT/HCPCS: 73630

== ENCOUNTER → 2024-05-03 08:14 | Outpatient (CLI) | payer OTHER, SELFPAY ==
[2020-08-29 10:57] VITALS: BMI 21.3
--- NOTE | 2024-05-03 08:16 | DI.RAD.S_ITS ---
PROCEDURE: XR FOOT RT MIN 3V INDICATIONS: Encounter for other orthopedic aftercare TECHNIQUE: 3 views of the foot were acquired. COMPARISON: [facility], CR, XR FOOT RT MIN 3V, 04/14/2024, 8:01. FINDINGS: Bones: No fractures or dislocations. No suspicious bony lesions. Similar fixation plates and screws within the midfoot and proximal 1st metatarsal bone. Degenerative changes to the DIP joints, MTP joints, tarsal metatarsal joints and tarsal joints. Small enthesophytes along the plantar aspect of the calcaneus. Inci. dental os perineum Soft tissues: No tibiotalar joint effusion. Achilles tendon appears normal. IMPRESSION: 1. Similar fixation plates and screws within the midfoot and proximal 1st metatarsal bone. 2. No acute fracture or dislocation. Dictated by: Micheal Quintanilla M.D. on 05/03/2024 at 9:39 Approved by: Micheal Quintanilla M.D. on 05/03/2024 at 9:47
== END ==
PROVIDERS: PCP Internal Medicine; Referring Provider Podiatrist Foot & Ankle Surgery; Visit Provider Podiatrist Foot & Ankle Surgery
DX: Z47.89 Encounter for other orthopedic aftercare (principal)
CPT/HCPCS: 73630

== ENCOUNTER → 2024-06-02 08:57 | Outpatient (CLI) | payer OTHER, SELFPAY ==
[2020-08-29 10:57] VITALS: BMI 21.3
--- NOTE | 2024-06-02 08:59 | DI.RAD.S_ITS ---
PROCEDURE: XR FOOT RT MIN 3V INDICATIONS: RIGHT FOOT PAIN TECHNIQUE: 3 weight-bearing views of the foot were acquired. COMPARISON: [facility], , XR FOOT RT MIN 3V, 05/03/2024, 8:15. FINDINGS: Bones: Stable appearance and alignment of surgical fusion of the right midfoot with medial and dorsal plate and screw fixation of the proximal 1st metatarsal and medial cuneiform. There is also surgical fixation across the cuneiform bones. No evidence for hardware loosening or failure. No acute fracture. Mild degenerative changes of the 1st metatarsophalangeal joint. No pes planus. Soft tissues: No tibiotalar joint effusion. Achilles tendon appears normal. IMPRESSION: No acute bony abnormality. Stable postsurgical changes and alignment status post arthrodesis of the 1st tarsometatarsal joint and right midfoot. No evidence for hardware complication. Dictated by: Cornelius Marshall M.D. on 06/02/2024 at 12:27 Approved by: Cornelius Marshall M.D. on 06/02/2024 at 12:30
== END ==
PROVIDERS: PCP Internal Medicine; Referring Provider Podiatrist Foot & Ankle Surgery; Visit Provider Podiatrist Foot & Ankle Surgery
DX: Z47.89 Encounter for other orthopedic aftercare (principal); Z98.1 Arthrodesis status
CPT/HCPCS: 73630

== ENCOUNTER → 2024-08-24 12:29 | Outpatient (CLI) | payer OTHER, SELFPAY ==
[2020-08-29 10:57] VITALS: BMI 21.3
--- NOTE | 2024-08-24 12:31 | DI.RAD.S_ITS ---
PROCEDURE: XR FOOT RT MIN 3V INDICATIONS: FOOT PAIN TECHNIQUE: 3 views of the foot were acquired. COMPARISON: [facility], CR, XR FOOT RT MIN 3V, 06/02/2024, 8:57. [facility], CR, XR FOOT RT MIN 3V, 05/03/2024, 8:15. FINDINGS: Bones: 1st TMT and midfoot postsurgical changes again seen, with prominent lucency lateral to the medial cuneiform similar to prior. Hardware positioning is similar. Mild 1st MTP degenerative changes. Soft tissues: No suspicious calcifications. IMPRESSION: Similar postsurgical changes in the medial midfoot and 1st TMT. Dictated by: Tanner Ramos M.D. on 08/24/2024 at 16:17 Approved by: Tanner Ramos M.D. on 08/24/2024 at 16:19
== END ==
PROVIDERS: PCP Internal Medicine; Referring Provider Podiatrist Foot & Ankle Surgery; Visit Provider Podiatrist Foot & Ankle Surgery
DX: M25.271 Flail joint, right ankle and foot (principal); Z47.89 Encounter for other orthopedic aftercare
CPT/HCPCS: 73630

== ENCOUNTER → 2025-06-14 08:48 | Outpatient (CLI) | payer OTHER, SELFPAY ==
[2020-08-29 10:57] VITALS: BMI 21.3
[2025-06-14 09:55] LABS: Blood Urea Nitrogen 17 mg/dL (7-17); Calcium 9.2 mg/dL (8.4-10.2); Carbon Dioxide 30 mmol/L (22-32); Cholesterol 226 mg/dL (140-199); Estimated Glomerular Filt Rate > 60 mL/min (>60); Glucose 90 mg/dL (70-99); HEMOLYSIS < 15 (0-50); Potassium 4.2 mmol/L (3.4-5.1); Sodium 141 mmol/L (137-145); Triglycerides 188 mg/dL (35-150)
[2025-06-14 10:06] LABS: Chloride 103 mmol/L (98-107); HDL Cholesterol 57 mg/dL (40-60)
== END ==
PROVIDERS: PCP Internal Medicine; Referring Provider Internal Medicine; Visit Provider Internal Medicine
DX: Z13.6 Encounter for screening for cardiovascular disorders (principal); Z13.220 Encounter for screening for lipoid disorders; Z79.899 Other long term (current) drug therapy
CPT/HCPCS: 36415; 80048; 80061